=== PATIENT | female | born 1950 | race Caucasian/White ===

== ENCOUNTER 2016-06-25 03:12 | Observation (INO) | payer MEDICARE, BC ==
[2016-06-25] MEDS ORDERED: Nitroglycerin 2% Oint 1 GM UD Packet TOP ONE (03:20)
[2016-06-25] MEDS ORDERED: Aspirin 81 MG Tab.Chew PO ONE (03:20)
--- NOTE | 2016-06-25 03:23 | EDM.PDOC ---
ED HPI GENERAL MEDICAL PROBLEM - General Chief Complaint: Cardiovascular Problem Stated Complaint: CHEST PAINS Time Seen by Provider: 06/25/16 03:19 - History of Present Illness INITIAL COMMENTS - FREE TEXT/NARRATIVE: HISTORY AND PHYSICAL: History of present illness: Patient is a 66-year-old female history of prior myocardial infarction and atrial fibrillation presents with a concern of palpitations patient states she awoke with this approximately 2:30 AM she does not qualify this as a pain similar to her prior MS she denies associated shortness of breath nausea vomiting or other concerns Review of systems As per history of present illness and below otherwise all systems reviewed and negative. Past medical history: As per history of present illness and as reviewed below otherwise noncontributory. Surgical history: As per history of present illness and as reviewed below otherwise noncontributory. Social history: No reported history of drug or alcohol abuse. Family history: As per history of present illness and as reviewed below otherwise noncontributory. Physical exam: HEENT: Atraumatic, normocephalic, pupils reactive, negative for conjunctival pallor or scleral icterus, mucous membranes moist, throat clear, neck supple, nontender, trachea midline. Lungs: Clear to auscultation, breath sounds equal bilaterally, chest nontender. Heart: S1S2, irregularly irregular rate approximately 1:30, negative for clicks , rubs, or JVD. Abdomen: Soft, nondistended, nontender. Negative for masses or hepatosplenomegaly. Negative for costovertebral tenderness. Pelvis: Stable nontender. Genitourinary: Deferred. Rectal: Deferred. Extremities: Atraumatic, negative for cords or calf pain. Neurovascular unremarkable. Neuro: Awake, alert, oriented. Cranial nerves II through XII unremarkable. Cerebellum unremarkable. Motor and sensory unremarkable throughout. Exam nonfocal. Diagnostics: CBC CMP PT/INR troponin chest x-ray EKG Therapeutics: IV O2 monitor nitro paste 1 inch to chest wall Lopressor 5 mg IV every 5x3 aspirin 324 mg by mouth Impression: #1 atrial fibrillation with rapid ventricular response #2 history coronary artery disease #3 history of myocardial infarct Definitive disposition and diagnosis as appropriate pending reevaluation and review of above. Chest Pain Score (Numeric/FACES): 4 - Related Data Allergies Allergy/AdvReac Type Severity Reaction Status Date / Time RADHA Inhibitors AdvReac Cough Verified 06/25/16 04:23 Home Meds: Home Meds Aspirin [Cliff Chewable Aspirin] 81 mg PO DAILY 10/05/13 [History] Diltiazem HCl [Diltiazem 24Hr Cd] 360 mg PO DAILY 10/05/13 [History] Escitalopram [Lexapro] 20 mg PO DAILY 10/05/13 [History] Furosemide [Lasix] 60 mg PO DAILY 10/05/13 [History] Insulin Aspart [NovoLOG] 25 units SUBCUT ASDIRECTED 10/05/13 [History] Insulin Glarg,Human.Rec.Analog [Lantus] 50 units SUBCUT BEDTIME 10/05/13 [ History] Irbesartan [Avapro] 150 mg PO DAILY 10/05/13 [History] Isosorbide Mononitrate [Imdur] 120 mg PO DAILY 10/05/13 [History] Liraglutide [Victoza] 1.2 mg SUBCUT BEDTIME 10/05/13 [History] Metoprolol Succinate [Toprol XL 50mg] 50 mg PO BID 10/05/13 [History] Nitroglycerin 0.4 mg SL ASDIRECTED PRN 10/05/13 [History] Warfarin [Coumadin] 5 mg PO DAILY 10/05/13 [History] atorvaSTATin [Lipitor] 80 mg PO BEDTIME 10/05/13 [History] metFORMIN [Glucophage] 1,000 mg PO BID 10/05/13 [History] Social & Family History - Tobacco Use Smoking Status *Q: Former Smoker Years of Tobacco use: 35 Used Tobacco, but Quit: Yes Month Tobacco Last Used: December Second Hand Smoke Exposure: No - Recreational Drug Use Recreational Drug Use: No ED ROS GENERAL - Review of Systems Review Of Systems: ROS reveals no pertinent complaints other than HPI. ED EXAM, GENERAL - Physical Exam Exam: See Below (See dictation) Course - Vital Signs Last Recorded V/S: Last Vital Signs Temp 36.8 C 06/25/16 03:14 Pulse 104 H 06/25/16 07:06 Resp 16 06/25/16 07:06 BP 116/68 06/25/16 07:06 Pulse Ox 96 06/25/16 07:06 - Orders/Labs/Meds Orders: Active Orders 24 hr Category Date Time Status EKG Documentation Completion [RC] STAT Care 06/25/16 03:50 Active EKG Documentation Completion [RC] STAT Care 06/25/16 04:18 Active Chest 1V Frontal [CR] Stat Exams 06/25/16 03:24 Taken Labs: Laboratory Tests 06/25/16 06/25/16 06/25/16 Range/Units 03:26 03:26 03:26 WBC 8.48 (4.0-11.0) K/uL RBC 4.41 (4.30-5.90) M/uL Hgb 13.9 (12.0-16.0) g/dL Hct 41.1 (36.0-46.0) % MCV 93.2 (80.0-98.0) fL MCH 31.5 (27.0-32.0) pg MCHC 33.8 (31.0-37.0) g/dL RDW Std Deviation 44.5 (28.0-62.0) fl RDW Coeff of Imani 13 (11.0-15.0) % Plt Count 222 (150-400) K/uL MPV 10.10 (7.40-12.00) fL Neut % (Auto) 70.0 (48.0-80.0) % Lymph % (Auto) 22.5 (16.0-40.0) % Gage % (Auto) 5.4 (0.0-15.0) % Eos % (Auto) 2.0 (0.0-7.0) % Baso % (Auto) 0.1 (0.0-1.5) % Neut # (Auto) 5.9 H (1.4-5.7) K/uL Lymph # (Auto) 1.9 (0.6-2.4) K/uL Gage # (Auto) 0.5 (0.0-0.8) K/uL Eos # (Auto) 0.2 (0.0-0.7) K/uL Baso # (Auto) 0.0 (0.0-0.1) K/uL Nucleated RBC % 0.0 /100WBC Nucleated RBCs # 0 K/uL INR 1.89 H (0.86-1.11) Sodium 139 (136-146) mmol/L Potassium 3.4 L (3.5-5.1) mmol/L Chloride 103 (98-110) mmol/L Carbon Dioxide 24 (21-31) mmol/L BUN 19 (6.0-23.0) mg/dL Creatinine 0.7 (0.6-1.5) mg/dL Est Cr Clr Drug Dosing 68.27 mL/min Estimated GFR (MDRD) > 60.0 ml/min Glucose 48 L (60-110) mg/dL POC Glucose (60-110) mg/dL Calcium 10.1 (8.8-10.8) mg/dL Total Bilirubin 0.3 (0.1-1.5) mg/dL AST 26 (5-40) IU/L ALT 34 (8-54) IU/L Alkaline Phosphatase 85 (40-150) Troponin I (0.0-0.29) NG/ML B-Natriuretic Peptide (<100) PG/ML Total Protein 8.2 H (6.0-8.0) g/dL Albumin 4.6 (3.4-4.8) g/dL Globulin 3.6 H (2.0-3.5) g/dL Albumin/Globulin Ratio 1.3 (1.3-2.8) 06/25/16 06/25/16 06/25/16 Range/Units 03:26 03:26 04:08 WBC (4.0-11.0) K/uL RBC (4.30-5.90) M/uL Hgb (12.0-16.0) g/dL Hct (36.0-46.0) % MCV (80.0-98.0) fL MCH (27.0-32.0) pg MCHC (31.0-37.0) g/dL RDW Std Deviation (28.0-62.0) fl RDW Coeff of Imani (11.0-15.0) % Plt Count (150-400) K/uL MPV (7.40-12.00) fL Neut % (Auto) (48.0-80.0) % Lymph % (Auto) (16.0-40.0) % Gage % (Auto) (0.0-15.0) % Eos % (Auto) (0.0-7.0) % Baso % (Auto) (0.0-1.5) % Neut # (Auto) (1.4-5.7) K/uL Lymph # (Auto) (0.6-2.4) K/uL Gage # (Auto) (0.0-0.8) K/uL Eos # (Auto) (0.0-0.7) K/uL Baso # (Auto) (0.0-0.1) K/uL Nucleated RBC % /100WBC Nucleated RBCs # K/uL INR (0.86-1.11) Sodium (136-146) mmol/L Potassium (3.5-5.1) mmol/L Chloride (98-110) mmol/L Carbon Dioxide (21-31) mmol/L BUN (6.0-23.0) mg/dL Creatinine (0.6-1.5) mg/dL Est Cr Clr Drug Dosing mL/min Estimated GFR (MDRD) ml/min Glucose (60-110) mg/dL POC Glucose 38 L (60-110) mg/dL Calcium (8.8-10.8) mg/dL Total Bilirubin (0.1-1.5) mg/dL AST (5-40) IU/L ALT (8-54) IU/L Alkaline Phosphatase (40-150) Troponin I < 0.10 (0.0-0.29) NG/ML B-Natriuretic Peptide 126 H (<100) PG/ML Total Protein (6.0-8.0) g/dL Albumin (3.4-4.8) g/dL Globulin (2.0-3.5) g/dL Albumin/Globulin Ratio (1.3-2.8) 06/25/16 06/25/16 06/25/16 Range/Units 04:25 06:36 06:40 WBC (4.0-11.0) K/uL RBC (4.30-5.90) M/uL Hgb (12.0-16.0) g/dL Hct (36.0-46.0) % MCV (80.0-98.0) fL MCH (27.0-32.0) pg MCHC (31.0-37.0) g/dL RDW Std Deviation (28.0-62.0) fl RDW Coeff of Imani (11.0-15.0) % Plt Count (150-400) K/uL MPV (7.40-12.00) fL Neut % (Auto) (48.0-80.0) % Lymph % (Auto) (16.0-40.0) % Gage % (Auto) (0.0-15.0) % Eos % (Auto) (0.0-7.0) % Baso % (Auto) (0.0-1.5) % Neut # (Auto) (1.4-5.7) K/uL Lymph # (Auto) (0.6-2.4) K/uL Gage # (Auto) (0.0-0.8) K/uL Eos # (Auto) (0.0-0.7) K/uL Baso # (Auto) (0.0-0.1) K/uL Nucleated RBC % /100WBC Nucleated RBCs # K/uL INR (0.86-1.11) Sodium (136-146) mmol/L Potassium (3.5-5.1) mmol/L Chloride (98-110) mmol/L Carbon Dioxide (21-31) mmol/L BUN (6.0-23.0) mg/dL Creatinine (0.6-1.5) mg/dL Est Cr Clr Drug Dosing mL/min Estimated GFR (MDRD) ml/min Glucose (60-110) mg/dL POC Glucose 194 H 86 (60-110) mg/dL Calcium (8.8-10.8) mg/dL Total Bilirubin (0.1-1.5) mg/dL AST (5-40) IU/L ALT (8-54) IU/L Alkaline Phosphatase (40-150) Troponin I < 0.10 (0.0-0.29) NG/ML B-Natriuretic Peptide (<100) PG/ML Total Protein (6.0-8.0) g/dL Albumin (3.4-4.8) g/dL Globulin (2.0-3.5) g/dL Albumin/Globulin Ratio (1.3-2.8) Meds: Medications Discontinued Medications Generic Name Dose Route Start Last Admin Trade Name Freq PRN Reason Stop Dose Admin Aspirin 324 mg 06/25/16 03:20 06/25/16 03:28 Aspirin PO 06/25/16 03:21 324 mg ONETIME ONE Administration Dextrose/Water Confirm 06/25/16 04:15 06/25/16 05:05 Dextrose 50% In Water Administered 06/25/16 04:16 Not Given Dose 50 ml .ROUTE .STK-MED ONE Dextrose/Water 50 ml 06/25/16 04:21 06/25/16 04:16 Dextrose 50% In Water IVPUSH 06/25/16 04:22 50 ml ONETIME ONE Administration Metoprolol Succinate 50 mg 06/25/16 04:20 06/25/16 05:04 Toprol Xl PO 06/25/16 04:21 Not Given ONETIME ONE Metoprolol Tartrate 5 mg 06/25/16 03:30 06/25/16 04:09 Lopressor IVPUSH 06/25/16 03:41 5 mg Q5M BRIDGETT Administration Metoprolol Tartrate Confirm 06/25/16 04:16 06/25/16 05:04 Lopressor Administered 06/25/16 04:17 Not Given Dose 25 mg .ROUTE .STK-MED ONE Metoprolol Tartrate 25 mg 06/25/16 04:18 06/25/16 04:18 Lopressor PO 06/25/16 04:19 25 mg ONETIME ONE Administration Metoprolol Tartrate Confirm 06/25/16 05:04 06/25/16 05:34 Lopressor Administered 06/25/16 05:05 Not Given Dose 25 mg .ROUTE .STK-MED ONE Nitroglycerin 1 gm 06/25/16 03:20 06/25/16 03:26 Nitro-Bid 2% TOP 06/25/16 03:21 1 gm ONETIME ONE Administration Departure - Departure Time of Disposition: 07:10 Disposition: Refer to Observation Condition: good Clinical Impression: Chest pain, Palpitations Forms: ED Department Discharge - My Orders Last 24 Hours: My Active Orders 06/25/16 03:24 Chest 1V Frontal [CR] Stat 06/25/16 03:50 EKG Documentation Completion [RC] STAT 06/25/16 04:18 EKG Documentation Completion [RC] STAT - Assessment/Plan Last 24 Hours: My Active Orders 06/25/16 03:24 Chest 1V Frontal [CR] Stat 06/25/16 03:50 EKG Documentation Completion [RC] STAT 06/25/16 04:18 EKG Documentation Completion [RC] STAT
[2016-06-25] MEDS: Metoprolol Tartrate 5 MG/5 ML SDV IVPUSH SCH ×3 (03:30→04:09)
[2016-06-25 03:53] LABS: CHLORIDE,CL 103 mmol/L (98-110); SODIUM,NA 139 mmol/L (136-146)
[2016-06-25] MEDS ORDERED: 50% Dextrose in Water 50 ML Syringe ONE (04:15)
[2016-06-25] MEDS ORDERED: Metoprolol Tartrate 25 MG Tab ONE ×2 (04:16→05:04)
[2016-06-25] MEDS ORDERED: Metoprolol Tartrate 25 MG Tab PO ONE (04:18)
[2016-06-25] MEDS ORDERED: Metoprolol Succinate 50 MG Tab.ER PO ONE (04:20)
[2016-06-25] MEDS ORDERED: 50% Dextrose in Water 50 ML Syringe IVPUSH ONE (04:21)
[2016-06-25] MEDS ORDERED: Diltiazem 180 MG Cap.CD PO SCH (09:30)
[2016-06-25] MEDS ORDERED: Isosorbide Mononitrate 60 MG Tab.ER PO SCH (09:30)
[2016-06-25] MEDS ORDERED: Diltiazem 180 MG Cap.CD PO ONE (09:30)
[2016-06-25] MEDS ORDERED: Irbesartan 150 MG Tab PO SCH (09:30)
[2016-06-25] MEDS ORDERED: Escitalopram 10 MG Tab PO SCH (09:30)
--- NOTE | 2016-06-25 09:44 | PCM.HP ---
Addendum entered and electronically signed by Dank Das MD 06/25/16 17:14: Discharge Summary: Patient was monitored overnight. Her palpitations resolved shortly after arriving to floor. They did not recur and patient did well. HR improved after home medications were restarted. She was requesting to leave home. Her vitals were stable and labs were all normal. She was found to have a UTI which she states is a common recurrence for her. She was given 1 dose of Keflex during stay and sent home on 10 day course. Her Urine was sent for culture. She will be contacted by Dr. Das if her UC is not sensitive to Keflex. No changes were made to her home medications. She sees Dr. Lopes as her PCP and will be following up with him. She was also scheduled for follow-up with Dr. Justni, cardiology. She was informed of her subtherapeutic inr which she will address with her PCP. Discharge Diagnosis: 1. Palpitations, resolved 2. AF with RVR, now rate controlled - continue home medications 3. Subtherapeutic INR, 1.89 - no change made to Coumadin dose, patient to f/u with PCP 4. UTI - prescribed Keflex 500 mg BID for 10 days, Dr. Das to f/u on UC Original Note: H&P History of Present Illness - General Date of Service: 06/25/16 Admit Problem/Dx: Admission Diagnosis/Problem Admission Diagnosis/Problem Chest pain - History of Present Illness Initial Comments - Free Text/Narative: 66 yo fm with history of AF, CAD, NV in 2000, DM and Anxiety was admitted for palpitations and AF with RVR. Palpitations began last night while patient was sleeping. She states she was doing well with no recent illnesses prior to start of symptoms. She had some associated SOB and sweating but no chest pain. By the time she reached the medical floor her palpitations resolved. She has felt much better since then and would like to go home. It has been over 2 years she last experienced RVR. She states that she is in continuous AF. She sees a gel coater in [place] was told hy him that cardioversion would likely not be effective so it was not attempted. She last saw this past April. At that time she was on Digoxin which was stopped bc of low heart rate. She also had and echo done due to possible murmur. She is unsure what the EF was but she was told the echo was normal. Her next appointment with him is not for 1 year. She was a previous smoker but quit in 2000. She denies alcohol use. While in ED she had EKG, CBC, CMP, PT/INR and CXR done. She was given IVF and Lopressor 5 mg x 3 doses. Chest Pain Score (Numeric/FACES): 4 - Related Data Allergies/Adverse Reactions: Allergies Allergy/AdvReac Type Severity Reaction Status Date / Time RADHA Inhibitors AdvReac Cough Verified 06/25/16 04:23 Home Medications: Home Meds Aspirin [Cliff Chewable Aspirin] 81 mg PO DAILY 10/05/13 [History] Diltiazem HCl [Diltiazem 24Hr Cd] 360 mg PO DAILY 10/05/13 [History] Escitalopram [Lexapro] 20 mg PO DAILY 10/05/13 [History] Furosemide [Lasix] 60 mg PO DAILY 10/05/13 [History] Insulin Aspart [NovoLOG] 25 units SUBCUT BID 10/05/13 [History] Insulin Glarg,Human.Rec.Analog [Lantus] 50 units SUBCUT BEDTIME 10/05/13 [ History] Irbesartan [Avapro] 150 mg PO DAILY 10/05/13 [History] Isosorbide Mononitrate [Imdur] 120 mg PO DAILY 10/05/13 [History] Liraglutide [Victoza] 1.2 mg SUBCUT BEDTIME 10/05/13 [History] Nitroglycerin 0.4 mg SL ASDIRECTED PRN 10/05/13 [History] Warfarin [Coumadin] 5 mg PO DAILY 10/05/13 [History] atorvaSTATin [Lipitor] 80 mg PO BEDTIME 10/05/13 [History] metFORMIN [Glucophage] 1,000 mg PO BID 10/05/13 [History] Fesoterodine Fumarate [Toviaz] 8 mg PO BEDTIME 06/25/16 [History] Metoprolol Tartrate [Lopressor] 50 mg PO BID 06/25/16 [History] Past Medical History HEENT History: Reports: Cataract Cardiovascular History: Reports: Afib, CAD, Heart Murmur, High Cholesterol, Hypertension, NV, SOB on Exertion Respiratory History: Reports: Sleep Apnea Gastrointestinal History: Reports: None Genitourinary History: Reports: Pyelonephritis, UTI, Recurrent 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: Musculoskeletal History: Reports: Fracture Neurological History: Reports: None Psychiatric History: Reports: None Endocrine/Metabolic History: Reports: Diabetes, Type II, Obesity/BMI 30+ Hematologic History: Reports: Blood Transfusion(s) Immunologic History: Reports: None Oncologic (Cancer) History: Reports: None Dermatologic History: Reports: None - Infectious Disease History Infectious Disease History: Reports: Influenza, Measles, Mumps - Past Surgical History HEENT Surgical History: Reports: Cataract Surgery, Tonsillectomy Cardiovascular Surgical History: Reports: Coronary Artery Bypass, Percutaneous Transluminal Angioplasty Respiratory Surgical History: Reports: None Female Surgical History: Reports: None Endocrine Surgical History: Reports: None Social & Family History - Family History Family Medical History: Noncontributory - Tobacco Use Smoking Status *Q: Former Smoker Years of Tobacco use: 35 Used Tobacco, but Quit: Yes Month Tobacco Last Used: 16 years ago Second Hand Smoke Exposure: No - Caffeine Use Caffeine Use: Reports: Coffee - Recreational Drug Use Recreational Drug Use: No H&P Review of Systems - Review of Systems: Review Of Systems: See Below General: Reports: No Symptoms. Denies: Fever, Chills, Malaise, Weakness HEENT: Reports: No Symptoms Pulmonary: Reports: No Symptoms. Denies: Shortness of Breath, Pleuritic Chest Pain, Cough Cardiovascular: Reports: No Symptoms. Denies: Chest Pain, Palpitations, Dyspnea on Exertion, Edema, Lightheadedness, Syncope Gastrointestinal: Reports: No Symptoms Genitourinary: Reports: No Symptoms Musculoskeletal: Reports: No Symptoms Skin: Reports: No Symptoms Psychiatric: Reports: No Symptoms Neurological: Reports: No Symptoms. Denies: Confusion, Dizziness, Headache, Numbness, Paresthesia, Seizure, Syncope, Tremors, Difficulty Walking, Weakness Hematologic/Lymphatic: Reports: No Symptoms Immunologic: Reports: No Symptoms Exam - Exam Exam: See Below - Vital Signs Vital Signs: Last Vital Signs Temp 36.4 C 06/25/16 07:51 Pulse 104 H 06/25/16 07:06 Resp 18 06/25/16 07:51 BP 144/72 H 06/25/16 07:51 Pulse Ox 99 06/25/16 07:51 Weight: 99.8 kg - Exam General: Alert, Oriented, Cooperative HEENT: Conjunctiva Clear, EACs Clear, EOMI Neck: Supple, Trachea Midline, +2 Carotid Pulse wo Bruit. No: JVD Lungs: Clear to Auscultation, Normal Respiratory Effort Cardiovascular: Irregular Rhythm Abdomen: Normal Bowel Sounds Back Exam: Normal Inspection Extremities: Normal Inspection Peripheral Pulses: 2+: Dorsalis Pedis (L), Dorsalis Pedis (R) Skin: Warm, Intact Neurological: Cranial Nerves Intact, Reflexes Equal Bilateral Neuro Extensive - Mental Status: Alert, Oriented x3, Normal Cognition, Memory Intact - Patient Data Lab Results last 24 hrs: Laboratory Results - last 24 hr 06/25/16 Range/Units 08:04 POC Glucose 82 (60-110) mg/dL Result Diagrams: 06/25/16 03:26 06/25/16 03:26 *Q Meaningful Use (ADM) - VTE *Q VTE Criteria *Q: - Stroke *Q Stroke Criteria *Q: - AMI *Q AMI Criteria *Q: Problem List Initiated/Reviewed/Updated: Yes Orders Last 24hrs: Active Orders 24 hr Category Date Time Status Telemetry Monitoring [Cardiac Monitoring] [RC] Q8H Care 06/25/16 07:40 Active ADA Diabetic [[place] [employer] Diet] [DIET Diet 06/25/16 Breakfast Active ] Diltiazem HCl [Diltiazem 24Hr Cd] Med 06/25/16 09:30 Ordered 360 mg PO DAILY Escitalopram Med 06/25/16 09:30 Ordered 20 mg PO DAILY Irbesartan [Avapro] Med 06/25/16 09:30 Ordered 150 mg PO DAILY Isosorbide Mononitrate [Imdur] Med 06/25/16 09:30 Ordered 120 mg PO DAILY Medication Orders Irbesartan (Avapro) 150 mg PO DAILY [facility], [facility]1983 Non-Formulary Medication (Escitalopram) 20 mg PO DAILY [facility], [facility]1983 Non-Formulary Medication (Diltiazem Hcl [Diltiazem 24hr Cd]) 360 mg PO DAILY [facility]1983 Non-Formulary Medication (Isosorbide Mononitrate [Imdur]) 120 mg PO DAILY [facility] Assessment/Plan Comment:: 66 yo fm with history of DM, AF, CAD and NV in 2000 admitted for palpitations secondary to AF with RVR assessment: 1. AF with RVR, CAD and NV in 2000 -resume home Cardizem, Metoprolol, Irbesartan, Lasix, Imdur, Lipitor -Telemetry -troponin q6h x 3 2. Subtherapeutic INR -resume Coumadin as per pharmacy 3. Hypokalemia -Potassium 40 meq 4. DM 2 -resume home Metformin, Novolog and Lantus -diabetic diet -glucose 5. DVT Prophylaxis -resume Coumadin as per pharmacy dose
[2016-06-25] MEDS ORDERED: Potassium Chloride 20 MEQ Tab.ER PO ONE (10:09)
[2016-06-25] MEDS ORDERED: Furosemide 40 MG Tab PO SCH (10:15)
--- NOTE | 2016-06-25 10:40 | CR ---
EXAM DATE: 06/25/16 PATIENT'S AGE: 66 Patient: ALEXX COLLIER Facility: [place], [place] Site . Site : [id number] Study: XRay Chest [id number]/19/2017 4:10:06 AM Ordering Physician: Jonathan Garcia Final Report: INDICATION: Chest pain TECHNIQUE: Chest radiograph 1 view COMPARISON: 04/06/2013 FINDINGS: The study is moderately limited by body habitus. Cardiovascular and mediastinum: Moderate to severe cardiomegaly noted without interval change. The mediastinum is normal in appearance. The patient is status post median sternotomy. Lungs and pleural spaces: Both lungs are unremarkable in appearance. No sign of pleural effusion seen. No pneumothorax is identified. Bones and soft tissues: No significant findings. IMPRESSION: Moderate to severe cardiomegaly noted without interval change Dictated by Meng Rosas MD @ 06/25/2016 4:16:10 AM Dictated by: Meng Rosas MD @ 06/25/2016 04:16:14 (Electronic Signature) Report Signed by Proxy. [facility] CENTERMarija
[2016-06-25] MEDS ORDERED: Aspirin 81 MG Tab.Chew PO SCH (10:45)
[2016-06-25] MEDS ORDERED: Metoprolol Tartrate 50 MG Tab PO SCH (10:45)
[2016-06-25] MEDS ORDERED: Warfarin 2.5 MG Tab PO SCH (14:00)
[2016-06-25 16:15] VITALS: BP 110/64
[2016-06-25] MEDS ORDERED: Cephalexin 500 MG Cap PO ONE (16:53)
[2016-06-25] MEDS ORDERED: metFORMIN 500 MG Tab PO SCH (17:00)
[2016-06-26] MEDS ORDERED: Aspirin 81 MG Tab.Chew PO SCH (09:00)
== END 2016-06-25 17:27 | disposition home or self-care (01) ==
LOC: MW.ED 03:12 → MW.ICU 07:11
PROVIDERS: ADMIT Internal Medicine; ATTEND Internal Medicine
DX: R00.2 Palpitations (principal); N39.0 Urinary tract infection, site not specified; I48.91 Unspecified atrial fibrillation; I25.10 Atherosclerotic heart disease of native coronary artery without angina pectoris; I25.2 Old myocardial infarction; E87.6 Hypokalemia; E11.9 Type 2 diabetes mellitus without complications; I10 Essential (primary) hypertension; E78.00 Pure hypercholesterolemia, unspecified; G47.30 Sleep apnea, unspecified; E66.9 Obesity, unspecified; Z79.4 Long term (current) use of insulin; Z79.01 Long term (current) use of anticoagulants; Z79.82 Long term (current) use of aspirin; Z79.84 Long term (current) use of oral hypoglycemic drugs; Z79.899 Other long term (current) drug therapy; Z95.0 Presence of cardiac pacemaker; Z98.49 Cataract extraction status, unspecified eye; Z90.89 Acquired absence of other organs; Z98.890 Other specified postprocedural states; Z87.891 Personal history of nicotine dependence
CPT/HCPCS: 36415; 71010; 80053; 81001; 82962; 83735; 83880; 84484; 85025; 85610; 87086; 93005; 96374; 96375; 96376; 99285; A9270; G0378; J7060; 87088; 87186; 99284

== ENCOUNTER → 2016-07-01 | Outpatient (CLI) | payer MEDICARE, BC | LOC: MW.CHIM 08:00 | PROVIDERS: ATTEND Internal Medicine | DX: I48.91 Unspecified atrial fibrillation (principal); I25.10 Atherosclerotic heart disease of native coronary artery without angina pectoris; E78.5 Hyperlipidemia, unspecified; I10 Essential (primary) hypertension | CPT/HCPCS: 99204 ==

== ENCOUNTER 2020-02-18 11:50 | Emergency (ER) | payer MEDICARE, BC ==
--- NOTE | 2020-02-18 12:03 | EDM.PDOC ---
ED HPI GENERAL MEDICAL PROBLEM - General Chief Complaint: General Stated Complaint: LABS NOT NORMAL Time Seen by Provider: 02/18/20 11:52 Source of Information: Reports: Patient History Limitations: Reports: No Limitations - History of Present Illness INITIAL COMMENTS - FREE TEXT/NARRATIVE: HISTORY AND PHYSICAL: History of present illness: Patient is a 69-year-old female who presents emergency room today with concern of "lab work abnormalities". Patient states that at the end of January, around the , she was having issues with epigastric/chest pain and was seen at [facility] in [place]. She states that initially the doctors at [place] were concerned about her heart as she has a history of cardiac bypass surgery / CHF / valve disease / afib. Patient states that she had various multiple examinations of her heart and was told that nothing had changed with her heart. Patient states that she had a stress test, and echo, and MRI of her heart and was told that her arteries are clear. Patient states that since her evaluation at [place], she has had shortness of breath/upper abd pain/lower chest pain. Patient states that they told her her gallbladder was abnormal so she had her gallbladder removed while she was in the hospital. Patient states that she does not fully remember all the events but was told that her gallbladder was infected and she required IV antibiotics and hospital admission. Patient does express upper abdominal pain and SOB but states these are unchanged from discharge from [facility] at the end of January. She states she has chronic UTI but her urine has been darker so she thinks she has another UTI. She state she has had some looser stools since her hospital stay. Patient denies fever, chills, chest pain or cough. Denies headache, neck stiff ness, change in vision, syncope, or near syncope. Denies nausea, vomiting, diarrhea, constipation, or dysuria. Has not noted any blood in urine or stool. Patient has been eating and drinking appropriately. Review of systems: As per history of present illness and below otherwise all systems reviewed and negative. Past medical history: As per history of present illness and as reviewed below otherwise noncontributory. Surgical history: As per history of present illness and as reviewed below otherwise noncontributory. Social history: See social history for further information Family history: As per history of present illness and as reviewed below otherwise noncontributory. Physical exam: General: Patient is alert, oriented, and in no acute distress. Patient sitting comfortably on exam table. Vitals stable and reviewed by me. HEENT: Atraumatic, normocephalic, pupils equal and reactive bilaterally, negative for conjunctival pallor or scleral icterus, mucous membranes moist, TMs normal bilaterally, throat clear, neck supple, nontender, trachea midline. No drooling or trismus noted. No meningeal signs. No hot potato voice noted. Lungs: Patient does make a few gasping sounds and draws in deeper breaths with use of intercostal muscles for breathing/uncomfortable breathing. Otherwise, Clear to auscultation, breath sounds equal bilaterally, chest nontender. Heart: S1S2, regular rate and rhythm without overt murmur Abdomen: Soft, nondistended, nontender. Negative for masses or hepatosplenomegaly. Negative for costovertebral tenderness. Pelvis: Stable nontender. Genitourinary: Deferred. Rectal: Deferred. Skin: Intact, warm, dry. No lesions or rashes noted. Extremities: Atraumatic, negative for cords or calf pain. Neurovascular unremarkable. Neuro: Awake, alert, oriented. Cranial nerves II through XII unremarkable. Cerebellum unremarkable. Motor and sensory unremarkable throughout. Exam nonfocal. Notes: Dr. Damian directly involved in patient care. Upon reevaluation of patient, she remains comfortable in the ED and is much more comfortable breathing on 2L NC. All findings of diagnostics discussed with patient today including incidental findings. Patient states that she would not like to be transferred to [facility] as she states that she "had a bad experience "and would like to foresee other possible facilities to address her postop fluid collection/concern for abscess or biloma. I called and spoke to the general surgeon at [facility] in [place], Dr. Grande, and thoroughly discussed patient's case. He is willing to accept patient for transfer. EMS arranged. Patient remains vitally stable and comfortable thoroughly stay in ED. Voices understanding and is agreeable to plan of care. Denies any further questions or concerns at this time. Diagnostics: CBC, CMP, UA, EKG, chest x-ray, lactate, blood cultures x 2, troponin, lipase, BNP, CXR, D-dimer, and CT, abdominal pelvic CT, right upper quadrant ultrasound, stool culture/shiga, cdiff tox, ova and parasite, ABG Therapeutics: NS, Zosyn, Vancomycin Impression: Intraabdominal fluid collection, post operative Dyspnea Urinary tract infection Plan: Transfer to to Dr. Grande via EMS Definitive disposition and diagnosis as appropriate pending reevaluation and review of above. - Related Data Allergies Allergy/AdvReac Type Severity Reaction Status Date / Time atenolol [From Tenormin] Allergy Cough Verified 02/18/20 12:14 RADHA Inhibitors AdvReac Cough Verified 06/25/16 04:23 Home Meds: Home Meds Aspirin [Cliff Chewable Aspirin] 81 mg PO DAILY 10/05/13 [History] Escitalopram [Lexapro] 20 mg PO DAILY 10/05/13 [History] Furosemide [Lasix] 60 mg PO DAILY 10/05/13 [History] Insulin Aspart [NovoLOG] 25 units SUBCUT BID 10/05/13 [History] Insulin Glarg,Human.Rec.Analog [Lantus] 50 units SUBCUT BEDTIME 10/05/13 [History] Irbesartan [Avapro] 150 mg PO DAILY 10/05/13 [History] Isosorbide Mononitrate [Imdur] 120 mg PO DAILY 10/05/13 [History] Liraglutide [Victoza] 1.2 mg SUBCUT BEDTIME 10/05/13 [History] Nitroglycerin 0.4 mg SL ASDIRECTED PRN 10/05/13 [History] Warfarin [Coumadin] 5 mg PO DAILY 10/05/13 [History] atorvaSTATin [Lipitor] 80 mg PO BEDTIME 10/05/13 [History] dilTIAZem HCl [Diltiazem 24Hr ER (Cd)] 360 mg PO DAILY 10/05/13 [History] metFORMIN [Glucophage] 1,000 mg PO BID 10/05/13 [History] Cephalexin [Keflex] 500 mg PO BID #20 cap 06/25/16 [Rx] Fesoterodine Fumarate [Toviaz] 8 mg PO BEDTIME 06/25/16 [History] Metoprolol Tartrate [Lopressor] 50 mg PO BID 06/25/16 [History] Past Medical History HEENT History: Reports: Cataract Cardiovascular History: Reports: Afib, CAD, Heart Murmur, High Cholesterol, Hypertension, [place], SOB on Exertion Respiratory History: Reports: Sleep Apnea, Other (See Below) Other Respiratory History: dyspnea Gastrointestinal History: Reports: None Genitourinary History: Reports: Pyelonephritis, UTI, Recurrent [employer] History: Reports: Musculoskeletal History: Reports: Fracture Neurological History: Reports: None, Parkinson's Psychiatric History: Reports: None Endocrine/Metabolic History: Reports: Diabetes, Type II, Obesity/BMI 30+ Hematologic History: Reports: Blood Transfusion(s) Immunologic History: Reports: None Oncologic (Cancer) History: Reports: None Dermatologic History: Reports: None - Infectious Disease History Infectious Disease History: Reports: Influenza, Measles, Mumps Social & Family History - Family History Family Medical History: No Pertinent Family History - Caffeine Use Caffeine Use: Reports: Coffee ED ROS GENERAL - Review of Systems Review Of Systems: Comprehensive ROS is negative, except as noted in HPI. ED EXAM, GENERAL - Physical Exam Exam: See Below (see dictation) Course - Vital Signs Last Recorded V/S: Last Vital Signs Temp 96.4 F L 02/18/20 12:14 Pulse 86 02/18/20 17:06 Resp 16 02/18/20 12:14 BP 100/48 L 02/18/20 17:06 Pulse Ox 97 02/18/20 17:06 - Orders/Labs/Meds Orders: Active Orders 24 hr Category Date Time Status C DIFFICILE AG/TOXIN W/REFLEX [RM] Stat Lab 02/18/20 15:05 Ordered CULTURE BLOOD [BC] Stat Lab 02/18/20 13:13 Received CULTURE BLOOD [BC] Stat Lab 02/18/20 13:17 Received CULTURE URINE [RM] Stat Lab 02/18/20 12:07 Received OVA & PARASITES BY IMMUNOASSAY [MREF] Stat Lab 02/18/20 15:06 Ordered STOOL CULTURE/SHIGA TOXIN [MREF] Stat Lab 02/18/20 15:06 Ordered Blood Culture x2 Reflex Set [OM.PC] Stat Oth 02/18/20 12:41 Ordered Saline Lock Insert [OM.PC] Stat Oth 02/18/20 12:40 Ordered Labs: Laboratory Tests 02/18/20 02/18/20 02/18/20 Range/Units 12:07 12:56 12:56 WBC 28.94 H (4.0-11.0) K/uL RBC 3.51 L (4.30-5.90) M/uL Hgb 10.6 L (12.0-16.0) g/dL Hct 31.7 L (36.0-46.0) % MCV 90.3 (80.0-98.0) fL MCH 30.2 (27.0-32.0) pg MCHC 33.4 (31.0-37.0) g/dL RDW Std Deviation 45.4 (28.0-62.0) fl RDW Coeff of Imani 14 (11.0-15.0) % Plt Count 432 H (150-400) K/uL MPV 9.30 (7.40-12.00) fL Neut % (Auto) 93.8 H (48.0-80.0) % Lymph % (Auto) 3.1 L (16.0-40.0) % [place] % (Auto) 2.8 (0.0-15.0) % Eos % (Auto) 0.3 (0.0-7.0) % Baso % (Auto) 0.0 (0.0-1.5) % Neut # (Auto) 27.1 H (1.4-5.7) K/uL Lymph # (Auto) 0.9 (0.6-2.4) K/uL [place] # (Auto) 0.8 (0.0-0.8) K/uL Eos # (Auto) 0.1 (0.0-0.7) K/uL Baso # (Auto) 0.0 (0.0-0.1) K/uL D-Dimer, Quantitative 4.42 H (0.0-0.50) mg/L FEU ABG pH (7.35-7.45) ABG pCO2 (35-45) mmHG ABG pO2 (75-100) mmHG ABG HCO3 (22-26) mEq/L ABG Total CO2 ABG Base Excess (-2.0-2.0) VBG pH (7.31-7.41) VBG pCO2 (35-45) mmHG VBG pO2 (30-40) mmHG VBG HCO3 (22-30) mEq/L VBG Total CO2 (41-51) mmol/L VBG Base Excess (-3.0-3.0) Lactate (0.20-2.00) mmol/L Sodium (136-145) mmol/L Potassium (3.5-5.1) mmol/L Chloride (98-107) mmol/L Carbon Dioxide (21.0-32.0) mmol/L BUN (7.0-18.0) mg/dL Creatinine (0.6-1.0) mg/dL Est Cr Clr Drug Dosing mL/min Estimated GFR (MDRD) ml/min Glucose (74-106) mg/dL Calcium (8.5-10.1) mg/dL Total Bilirubin (0.2-1.0) mg/dL AST (15-37) IU/L ALT (14-63) IU/L Alkaline Phosphatase (46-116) U/L Troponin I (0.000-0.056) ng/mL B-Natriuretic Peptide (<100) PG/ML Total Protein (6.4-8.2) g/dL Albumin (3.4-5.0) g/dL Globulin (2.6-4.0) g/dL Albumin/Globulin Ratio (0.9-1.6) Lipase (73-393) U/L Urine Color YELLOW Urine Appearance CLOUDY Urine pH 6.0 (5.0-8.0) Ur Specific [place] 1.010 (1.001-1.035) Urine Protein NEGATIVE (NEGATIVE) mg/dL Urine Glucose (UA) NEGATIVE (NEGATIVE) mg/dL Urine Ketones NEGATIVE (NEGATIVE) mg/dL Urine Occult Blood SMALL H (NEGATIVE) Urine Nitrite NEGATIVE (NEGATIVE) Urine Bilirubin NEGATIVE (NEGATIVE) Urine Urobilinogen 0.2 (<2.0) EU/dL Ur Leukocyte Esterase LARGE H (NEGATIVE) Urine RBC 2-3 (0-2/HPF) Urine WBC 60-80 (0-5/HPF) Ur Epithelial Cells FEW (NONE-FEW) Amorphous Sediment FEW (NEGATIVE) Urine Bacteria 2+ H (NEGATIVE) Urine Mucus FEW (NONE-MOD) 02/18/20 02/18/20 02/18/20 Range/Units 12:56 12:56 12:56 WBC (4.0-11.0) K/uL RBC (4.30-5.90) M/uL Hgb (12.0-16.0) g/dL Hct (36.0-46.0) % MCV (80.0-98.0) fL MCH (27.0-32.0) pg MCHC (31.0-37.0) g/dL RDW Std Deviation (28.0-62.0) fl RDW Coeff of Imani (11.0-15.0) % Plt Count (150-400) K/uL MPV (7.40-12.00) fL Neut % (Auto) (48.0-80.0) % Lymph % (Auto) (16.0-40.0) % [place] % (Auto) (0.0-15.0) % Eos % (Auto) (0.0-7.0) % Baso % (Auto) (0.0-1.5) % Neut # (Auto) (1.4-5.7) K/uL Lymph # (Auto) (0.6-2.4) K/uL [place] # (Auto) (0.0-0.8) K/uL Eos # (Auto) (0.0-0.7) K/uL Baso # (Auto) (0.0-0.1) K/uL D-Dimer, Quantitative (0.0-0.50) mg/L FEU ABG pH (7.35-7.45) ABG pCO2 (35-45) mmHG ABG pO2 (75-100) mmHG ABG HCO3 (22-26) mEq/L ABG Total CO2 ABG Base Excess (-2.0-2.0) VBG pH 7.48 H (7.31-7.41) VBG pCO2 40 (35-45) mmHG VBG pO2 31 (30-40) mmHG VBG HCO3 29 (22-30) mEq/L VBG Total CO2 27 L (41-51) mmol/L VBG Base Excess 5.5 H (-3.0-3.0) Lactate (0.20-2.00) mmol/L Sodium 133 L (136-145) mmol/L Potassium 3.6 (3.5-5.1) mmol/L Chloride 94 L (98-107) mmol/L Carbon Dioxide 27.3 (21.0-32.0) mmol/L BUN 10 (7.0-18.0) mg/dL Creatinine 0.8 (0.6-1.0) mg/dL Est Cr Clr Drug Dosing 52.49 mL/min Estimated GFR (MDRD) > 60.0 ml/min Glucose 108 H (74-106) mg/dL Calcium 9.0 (8.5-10.1) mg/dL Total Bilirubin 1.4 H (0.2-1.0) mg/dL AST 232 H (15-37) IU/L ALT 277 H (14-63) IU/L Alkaline Phosphatase 893 H (46-116) U/L Troponin I < 0.050 (0.000-0.056) ng/mL B-Natriuretic Peptide 365 H (<100) PG/ML Total Protein 7.5 (6.4-8.2) g/dL Albumin 2.1 L (3.4-5.0) g/dL Globulin 5.4 H (2.6-4.0) g/dL Albumin/Globulin Ratio 0.4 L (0.9-1.6) Lipase (73-393) U/L Urine Color Urine Appearance Urine pH (5.0-8.0) Ur Specific [place] (1.001-1.035) Urine Protein (NEGATIVE) mg/dL Urine Glucose (UA) (NEGATIVE) mg/dL Urine Ketones (NEGATIVE) mg/dL Urine Occult Blood (NEGATIVE) Urine Nitrite (NEGATIVE) Urine Bilirubin (NEGATIVE) Urine Urobilinogen (<2.0) EU/dL Ur Leukocyte Esterase (NEGATIVE) Urine RBC (0-2/HPF) Urine WBC (0-5/HPF) Ur Epithelial Cells (NONE-FEW) Amorphous Sediment (NEGATIVE) Urine Bacteria (NEGATIVE) Urine Mucus (NONE-MOD) 02/18/20 02/18/20 02/18/20 Range/Units 12:56 13:17 14:39 WBC (4.0-11.0) K/uL RBC (4.30-5.90) M/uL Hgb (12.0-16.0) g/dL Hct (36.0-46.0) % MCV (80.0-98.0) fL MCH (27.0-32.0) pg MCHC (31.0-37.0) g/dL RDW Std Deviation (28.0-62.0) fl RDW Coeff of Imani (11.0-15.0) % Plt Count (150-400) K/uL MPV (7.40-12.00) fL Neut % (Auto) (48.0-80.0) % Lymph % (Auto) (16.0-40.0) % [place] % (Auto) (0.0-15.0) % Eos % (Auto) (0.0-7.0) % Baso % (Auto) (0.0-1.5) % Neut # (Auto) (1.4-5.7) K/uL Lymph # (Auto) (0.6-2.4) K/uL [place] # (Auto) (0.0-0.8) K/uL Eos # (Auto) (0.0-0.7) K/uL Baso # (Auto) (0.0-0.1) K/uL D-Dimer, Quantitative (0.0-0.50) mg/L FEU ABG pH 7.523 H (7.35-7.45) ABG pCO2 33 L (35-45) mmHG ABG pO2 94 (75-100) mmHG ABG HCO3 27 H (22-26) mEq/L ABG Total CO2 24.0 ABG Base Excess 4.6 H (-2.0-2.0) VBG pH (7.31-7.41) VBG pCO2 (35-45) mmHG VBG pO2 (30-40) mmHG VBG HCO3 (22-30) mEq/L VBG Total CO2 (41-51) mmol/L VBG Base Excess (-3.0-3.0) Lactate 1.1 (0.20-2.00) mmol/L Sodium (136-145) mmol/L Potassium (3.5-5.1) mmol/L Chloride (98-107) mmol/L Carbon Dioxide (21.0-32.0) mmol/L BUN (7.0-18.0) mg/dL Creatinine (0.6-1.0) mg/dL Est Cr Clr Drug Dosing mL/min Estimated GFR (MDRD) ml/min Glucose (74-106) mg/dL Calcium (8.5-10.1) mg/dL Total Bilirubin (0.2-1.0) mg/dL AST (15-37) IU/L ALT (14-63) IU/L Alkaline Phosphatase (46-116) U/L Troponin I (0.000-0.056) ng/mL B-Natriuretic Peptide (<100) PG/ML Total Protein (6.4-8.2) g/dL Albumin (3.4-5.0) g/dL Globulin (2.6-4.0) g/dL Albumin/Globulin Ratio (0.9-1.6) Lipase 385 (73-393) U/L Urine Color Urine Appearance Urine pH (5.0-8.0) Ur Specific [place] (1.001-1.035) Urine Protein (NEGATIVE) mg/dL Urine Glucose (UA) (NEGATIVE) mg/dL Urine Ketones (NEGATIVE) mg/dL Urine Occult Blood (NEGATIVE) Urine Nitrite (NEGATIVE) Urine Bilirubin (NEGATIVE) Urine Urobilinogen (<2.0) EU/dL Ur Leukocyte Esterase (NEGATIVE) Urine RBC (0-2/HPF) Urine WBC (0-5/HPF) Ur Epithelial Cells (NONE-FEW) Amorphous Sediment (NEGATIVE) Urine Bacteria (NEGATIVE) Urine Mucus (NONE-MOD) Meds: Medications Discontinued Medications Generic Name Dose Route Start Last Admin Trade Name Freq PRN Reason Stop Dose Admin Acetaminophen 1,000 mg 02/18/20 13:35 02/18/20 13:42 Tylenol Extra Strength PO 02/18/20 13:36 1,000 mg ONETIME ONE Administration Sodium Chloride 1,000 mls @ 999 mls/hr 02/18/20 14:35 02/18/20 15:49 Normal Saline IV 02/18/20 15:35 999 mls/hr STAT ONE Administration Vancomycin HCl 2 gm/ Sodium 500 mls @ 333 mls/hr 02/18/20 14:37 02/18/20 15:53 Chloride IV 02/18/20 16:07 Not Given NOW STA Piperacillin Sod/Tazobactam 50 mls @ 100 mls/hr 02/18/20 14:38 02/18/20 15:50 Sod 3.375 gm/ Sodium Chloride IV 02/18/20 15:07 100 mls/hr ONETIME ONE Administration Vancomycin HCl 2 gm/ Premix 400 mls @ 200 mls/hr 02/18/20 15:00 02/18/20 15:50 IV 02/18/20 16:59 200 mls/hr ONETIME ONE Administration Iopamidol 100 ml 02/18/20 15:10 Isovue Multipack-370 (76%) IVPUSH 02/18/20 15:11 ONETIME STA Lidocaine HCl Confirm 02/18/20 14:21 02/18/20 14:25 Xylocaine-Mpf 1% Administered 02/18/20 14:22 Not Given Dose 5 ml .ROUTE .STK-MED ONE Lidocaine HCl 5 ml 02/18/20 14:25 02/18/20 14:31 Xylocaine-Mpf 1% INJECT 02/18/20 14:26 5 ml ONETIME ONE Administration Sodium Chloride 2.5 ml 02/18/20 12:40 02/18/20 13:43 Saline Flush FLUSH 2.5 ml ASDIRECTED PRN Administration Keep Vein Open Sodium Chloride 10 ml 02/18/20 12:40 02/18/20 13:42 Saline Flush FLUSH 10 ml ASDIRECTED PRN Administration Keep Vein Open Departure - Departure Time of Disposition: 17:57 Disposition: DC/Tfer to [facility] 02 Clinical Impression: Intraabdominal fluid collection Post-operative complication Qualifiers: Surgical complication system/body Area: digestive system Surgical complication type: unspecified Procedure type: digestive system Qualified Code(s): K91.89 - Other postprocedural complications and disorders of digestive system Urinary tract infection Qualifiers: Urinary tract infection type: acute cystitis Hematuria presence: without hematuria Qualified Code(s): N30.00 - Acute cystitis without hematuria Dyspnea Qualifiers: Dyspnea type: unspecified Qualified Code(s): R06.00 - Dyspnea, unspecified - Discharge Information Referrals: Master Lopes MD [Primary Care Provider] - Forms: ED Department Discharge Sepsis Event Note (ED) - Focused Exam Vital Signs: Vital Signs Temp Pulse Resp BP Pulse Ox 02/18/20 17:06 86 100/48 L 97 02/18/20 16:36 86 110/45 L 100 02/18/20 14:00 73 99 02/18/20 13:20 83 99 02/18/20 12:48 77 123/45 L 97 02/18/20 12:14 96.4 F L 85 16 126/52 L 96 - My Orders Last 24 Hours: My Active Orders 02/18/20 12:07 CULTURE URINE [RM] Stat 02/18/20 12:40 Saline Lock Insert [OM.PC] Stat 02/18/20 12:41 Blood Culture x2 Reflex Set [OM.PC] Stat 02/18/20 13:13 CULTURE BLOOD [BC] Stat 02/18/20 13:17 CULTURE BLOOD [BC] Stat 02/18/20 15:05 C DIFFICILE AG/TOXIN W/REFLEX [RM] Stat 02/18/20 15:06 OVA & PARASITES BY IMMUNOASSAY [MREF] Stat STOOL CULTURE/SHIGA TOXIN [MREF] Stat - Assessment/Plan Last 24 Hours: My Active Orders 02/18/20 12:07 CULTURE URINE [RM] Stat 02/18/20 12:40 Saline Lock Insert [OM.PC] Stat 02/18/20 12:41 Blood Culture x2 Reflex Set [OM.PC] Stat 02/18/20 13:13 CULTURE BLOOD [BC] Stat 02/18/20 13:17 CULTURE BLOOD [BC] Stat 02/18/20 15:05 C DIFFICILE AG/TOXIN W/REFLEX [RM] Stat 02/18/20 15:06 OVA & PARASITES BY IMMUNOASSAY [MREF] Stat STOOL CULTURE/SHIGA TOXIN [MREF] Stat
[2020-02-18] MEDS ORDERED: Sodium Chloride 0.9% 2.5 ML Syringe FLUSH PRN (12:40)
[2020-02-18] MEDS ORDERED: Sodium Chloride 0.9% 10 ML Syringe FLUSH PRN (12:40)
--- NOTE | 2020-02-18 13:13 | PCM.SN.2 ---
- Free Text/Narrative Note: EKG Time 104pm RATE 97 A-FIB T WAVE INVERSION V2
--- NOTE | 2020-02-18 13:25 | CR ---
Indication: Shortness of breath Comparison: Single view chest June 25, 2016 Technique: Single AP view chest Findings: There is hyperinflation and chronic interstitial change. There is demonstration of a left basilar pleural effusion with adjacent compressive atelectasis versus infiltrates. The cardiac silhouette is enlarged with a tortuous thoracic aorta with median sternotomy wires. The bony thorax is grossly intact. Impression: Small left basilar pleural effusion with likely adjacent compressive atelectasis versus infiltrates. Dictated by Royal Winters MD @ Feb 18 2020 1:19PM Signed by Dr. Royal Winters @ Feb 18 2020 1:23PM
[2020-02-18] MEDS ORDERED: Acetaminophen 500 MG Tab PO ONE (13:35)
[2020-02-18 13:46] LABS: BLOOD UREA NITROGEN,BUN 10 mg/dL (7.0-18.0); CARBON DIOXIDE,CO2 27.3 mmol/L (21.0-32.0); CHLORIDE,CL 94 mmol/L (98-107); GLUCOSE RANDOM 108 mg/dL (74-106); POTASSIUM,K 3.6 mmol/L (3.5-5.1); SODIUM,NA 133 mmol/L (136-145)
[2020-02-18] MEDS ORDERED: Sodium Chloride 0.9% 1,000 ML IV ONE (14:35)
[2020-02-18] MEDS ORDERED: Vancomycin 2 GM in Sodium Chloride 0.9% 500 ML IV STA (14:37)
[2020-02-18] MEDS ORDERED: Piperacillin/Tazobactam 3.375 GM in Sodium Chloride 0.9% 50 ML IV ONE (14:38)
--- NOTE | 2020-02-18 14:51 | PCM.SN.2 ---
- Free Text/Narrative Note: Anesthesia time [id number] Requested bedside for difficult arterial stick for ABG. L radial artery visualized with US. Lido. 1% for localization. 1 attempt. ABG vacuum syringe used to successfully ascertain arterial sample. RN held pressure to hemostasis. Pt alert and conversing throughout, no complications noted.
[2020-02-18] MEDS ORDERED: Vancomycin/Water for INJ (PEG) 2 GM in Premix Bag 1 BAG IV ONE (15:00)
[2020-02-18] MEDS ORDERED: Iopamidol 755 MG/ML 500 ML Multipack Bottle IVPUSH STA (15:10)
--- NOTE | 2020-02-18 15:39 | CT ---
INDICATION: Elevated D-dimer. Elevated white blood cell count. Recent gallbladder surgery. TECHNIQUE: CT abdomen and pelvis acquired with 100 cc Isovue 370 IV contrast. COMPARISON: None. FINDINGS: Lower chest: Trace left-sided pleural effusion with adjacent atelectasis. Liver: Unremarkable. Normal in size and attenuation. No masses. Gallbladder and bile ducts: Gallbladder has been resected. There is a poorly defined fluid collection in the gallbladder fossa at its widest point measuring 6.4 x 3.8 cm as measured on series 501, image 43. The anterior portion of this fluid collection is relatively dense as visualized on image 49 suggesting blood products and/or pus. The fluid collection also extends to the left and superiorly under the left diaphragm. A segment of the fluid collection under the diaphragm measures 10 x 3 cm. Pancreas: Unremarkable. No mass or inflammation. Spleen: Unremarkable. Normal in size. No masses. Adrenal glands: Minimal nodularity in each adrenal gland is of doubtful significance. Kidneys: There is scarring with calcifications in the cortex of the left kidney. Kidneys are otherwise unremarkable. GI tract: Unremarkable. Normal in caliber. No sign of mass or inflammation. Vasculature: Aortic atherosclerosis without aneurysm. Lymph nodes: No lymphadenopathy. Omentum/Peritoneum/Abdominal Wall: No intra-abdominal free air. Pelvis: Nondependent air in the urinary bladder is likely the result of recent catheterization. Bones: Unremarkable for age. IMPRESSION: 1. A moderate-sized complex postoperative fluid collection originating in the gallbladder fossa extends superiorly under the left diaphragm. This fluid collection could represent an abscess and/or hematoma, seroma, and bile leak. 2. Trace left-sided pleural effusion with adjacent atelectasis. Please note that all CT scans at this facility use dose modulation, iterative reconstruction, and/or weight-based dosing when appropriate to reduce radiation dose to as low as reasonably achievable. Dictated by Claude Cotto MD @ Feb 18 2020 3:29PM Signed by Dr. Claude Cotto @ Feb 18 2020 3:38PM
--- NOTE | 2020-02-18 16:06 | CT ---
INDICATION: Elevated D-dimer. Leukocytosis. Gallbladder surgery 02/04/2020. Abnormal CT of the abdomen and pelvis with fluid collection in the upper abdomen COMPARISON: No prior chest CTs. I have reviewed portions of the contemporaneously abdomen CT which was reported under separate cover TECHNIQUE: : CT examination of the chest was performed with the uneventful intravenous administration of 100 cc of Isovue 370 while thin axial sections were obtained from above the apices of the lungs to the lung bases. Please note that all CT scans at this facility use dose modulation, iterative reconstruction, and/or weight-based dosing when appropriate to reduce radiation dose to as low as reasonably achievable. FINDINGS: : HEART and MEDIASTINUM: Enlarged heart. No mediastinal or hilar adenopathy or mass. Median. Sternotomy. No significant pericardial fluid PULMONARY ARTERIAL CIRCULATION: There is no visible intraluminal filling defect to suggest pulmonary embolus. LUNGS: Emphysema. Left basilar airspace process probably atelectasis. Small left effusion. There are few nodules. The largest is in the right midlung on axial image 43 measuring 5 millimeters. A follow-up CT is recommended in 6 months to re-evaluate the lungs. PLEURAL SPACES: Normal right pleural space. Small left effusion. VISUALIZED UPPER ABDOMEN: Abnormal fluid in the upper abdomen extending under the left hemidiaphragm. This could be hematoma, seroma, abscess or bile leak. Please review the report of the abdomen and pelvis CT OSSEOUS STRUCTURES: Age-appropriate appearance. No acute fracture or destructive process. TUBES and LINES: None. IMPRESSION: 1. There is no finding of pulmonary embolus. 2. Left lower lobe atelectasis. Small left effusion. Emphysema. Several small nodules the largest of which measures 5 millimeters. A follow-up CT in 6 months is advised. 3. Abnormal fluid associated with the gallbladder fossa in the upper abdomen extending below the left hemidiaphragm. This could be hematoma, seroma, abscess or bile leak. Please review the report of the contemporaneously abdomen and pelvis CT Please note that all CT scans at this facility use dose modulation, iterative reconstruction, and/or weight-based dosing when appropriate to reduce radiation dose to as low as reasonably achievable. Dictated by Kalen Romano MD @ Feb 18 2020 3:54PM Signed by Dr. Kalen Romano @ Feb 18 2020 4:04PM
--- NOTE | 2020-02-18 16:14 | US ---
INDICATION: Transaminitis, recent cholecystectomy TECHNIQUE: Ultrasound abdomen limited. Sonographic images of the right upper quadrant were obtained using carlin-scale and color Doppler images. COMPARISON: CT abdomen February 18, 2020 FINDINGS: Liver: Normal in size and echotexture. No masses. No intrahepatic biliary dilatation. Gallbladder: Status post cholecystectomy. Small amount of fluid in the gallbladder fossa. Common bile duct: 2.9 mm. Pancreas: Not clearly seen. Right kidney: 11.2 cm in length. No hydronephrosis. Vasculature: Proximal abdominal aorta and IVC are normal. IMPRESSION: Small amount of fluid in the gallbladder bed. Correlate with date of cholecystectomy. Normal common bile duct. Dictated by Ashley Lam MD @ Feb 18 2020 4:13PM Signed by Dr. Ashley Lam @ Feb 18 2020 4:13PM
[2020-02-18 17:04] VITALS: PULSE 86
[2020-02-18 17:44] VITALS: BP 100/48
== END 2020-02-18 18:00 ==
LOC: MW.ED 11:50 → EEVIPCON 11:50 → MW.ED 18:00
DX: K91.89 Other postprocedural complications and disorders of digestive system (principal); N30.00 Acute cystitis without hematuria; R18.8 Other ascites; R06.00 Dyspnea, unspecified; E11.9 Type 2 diabetes mellitus without complications; E66.9 Obesity, unspecified; I10 Essential (primary) hypertension; I25.2 Old myocardial infarction; I48.91 Unspecified atrial fibrillation; G20 Parkinson's disease; Z88.8 Allergy status to other drugs, medicaments and biological substances; Z79.82 Long term (current) use of aspirin; Z79.4 Long term (current) use of insulin; Z79.899 Other long term (current) drug therapy; Z68.38 Body mass index [BMI] 38.0-38.9, adult
CPT/HCPCS: 36415; 36600; 71045; 71275; 74177; 76705; 80053; 81001; 82803; 83605; 83690; 83880; 84484; 85025; 85379; 87040; 87086; 87088; 87186; 93005; 96365; 96366; 96367; 99285; A9270; J2001; J2543; J3370; J7030; J7050

== ENCOUNTER 2021-05-26 06:10 | Day surgery (SDC) | payer MEDICARE, BC ==
[2021-05-26] MEDS ORDERED: Lactated Ringers 1,000 ML IV SCH (06:15)
[2021-05-26] MEDS ORDERED: Metoclopramide 10 MG/2 ML SDV IVPUSH PRN (07:19)
[2021-05-26] MEDS ORDERED: Naloxone 0.4 MG/ML SDV IVPUSH PRN (07:19)
[2021-05-26] MEDS ORDERED: fentaNYL 100 MCG/2 ML SDV IVPUSH PRN (07:19)
[2021-05-26] MEDS ORDERED: Ondansetron 4 MG/2 ML SDV IVPUSH PRN ×2 (07:19→09:33)
[2021-05-26] MEDS ORDERED: HYDROmorphone 1 MG/ML Syringe IVPUSH PRN (07:19)
[2021-05-26] MEDS ORDERED: Albuterol 0.083% 2.5 MG/3 ML Neb Soln NEB PRN (07:19)
[2021-05-26] MEDS ORDERED: propofoL 50 ML ONE (07:31)
[2021-05-26] MEDS ORDERED: fentaNYL 100 MCG/2 ML SDV ONE (07:34)
[2021-05-26] MEDS ORDERED: Lidocaine 1% 5 ML VIAL ONE (07:34)
[2021-05-26] MEDS ORDERED: ceFAZolin 2 GM in Premix Bag 1 BAG IV ONE (07:43)
[2021-05-26] MEDS ORDERED: Ketorolac 30 MG/ML SDV IVPUSH PRN (09:33)
[2021-05-26] MEDS ORDERED: Promethazine 25 MG/ML SDV IM PRN (09:33)
[2021-05-26] MEDS ORDERED: 50% Dextrose in Water 50 ML Syringe IVPUSH PRN (09:42)
[2021-05-26] MEDS ORDERED: Glucagon,Human Recombinant 1 MG Vial IM PRN (09:42)
[2021-05-26] MEDS ORDERED: Melatonin 3 MG Tab PO PRN (09:42)
[2021-05-26] MEDS ORDERED: Nitroglycerin 0.4 MG Tab.SL SL PRN (09:42)
[2021-05-26] MEDS ORDERED: Sodium Chloride 0.9% 1,000 ML IV SCH (09:45)
[2021-05-26] MEDS: Carbidopa/Levodopa 25-100 MG Tab PO SCH ×2 (14:29→21:42)
[2021-05-26] MEDS: Enoxaparin 30 MG/0.3 ML Syringe SUBCUT SCH (14:29)
[2021-05-26] MEDS: metFORMIN 500 MG Tab PO SCH (17:40)
[2021-05-26] MEDS: Insulin Aspart 100 Units/ML 3 ML Pen SUBCUT SCH (17:41)
[2021-05-26] MEDS ORDERED: Acetaminophen 325 MG/10.15 ML ML PO PRN (19:59)
[2021-05-26] MEDS ORDERED: Sodium Chloride 0.9% 2.5 ML Syringe FLUSH PRN (19:59)
[2021-05-26] MEDS ORDERED: Sodium Chloride 0.9% 10 ML Syringe FLUSH PRN (19:59)
[2021-05-26] MEDS ORDERED: atorvaSTATin 40 MG Tab PO SCH (21:00)
[2021-05-26] MEDS ORDERED: Insulin Glargine,Human Rec. Analog 100 Units/ML 3 ML Pen SUBCUT SCH (21:00)
[2021-05-26] MEDS: Metoprolol Tartrate 50 MG Tab PO SCH (21:44)
[2021-05-26] MEDS: Furosemide 40 MG Tab PO SCH (22:32)
[2021-05-27] MEDS: Insulin Aspart 100 Units/ML 3 ML Pen SUBCUT SCH ×2 (06:53→08:25)
[2021-05-27] MEDS: Carbidopa/Levodopa 25-100 MG Tab PO SCH (06:54)
[2021-05-27] MEDS: Metoprolol Tartrate 50 MG Tab PO SCH (08:21)
[2021-05-27] MEDS: metFORMIN 500 MG Tab PO SCH (08:23)
[2021-05-27] MEDS: Enoxaparin 30 MG/0.3 ML Syringe SUBCUT SCH (08:25)
[2021-05-27] MEDS: Furosemide 40 MG Tab PO SCH (08:43)
[2021-05-27] MEDS ORDERED: Irbesartan 150 MG Tab PO SCH (09:00)
[2021-05-27] MEDS ORDERED: Escitalopram 10 MG Tab PO SCH (09:00)
[2021-05-27] MEDS ORDERED: Furosemide 40 MG Tab PO SCH (09:00)
[2021-05-27] MEDS ORDERED: Diltiazem 180 MG Cap.CD PO SCH (09:00)
[2021-05-27 11:38] VITALS: BP 122/54; PULSE 76
== END 2021-05-27 13:00 | disposition home or self-care (01) ==
LOC: MW.SDS 06:10 → MW.MS 10:50 → MW.SDS 05-27 13:00
PROVIDERS: ATTEND Obstetrics & Gynecology
DX: N81.11 Cystocele, midline (principal); N81.6 Rectocele; N39.0 Urinary tract infection, site not specified; I10 Essential (primary) hypertension; G20 Parkinson's disease; E11.9 Type 2 diabetes mellitus without complications; I48.91 Unspecified atrial fibrillation; I25.10 Atherosclerotic heart disease of native coronary artery without angina pectoris; E78.00 Pure hypercholesterolemia, unspecified; I25.2 Old myocardial infarction; G47.30 Sleep apnea, unspecified; E66.9 Obesity, unspecified; Z68.38 Body mass index [BMI] 38.0-38.9, adult; Z88.8 Allergy status to other drugs, medicaments and biological substances; Z79.82 Long term (current) use of aspirin; Z79.01 Long term (current) use of anticoagulants; Z79.4 Long term (current) use of insulin; Z79.84 Long term (current) use of oral hypoglycemic drugs; Z79.899 Other long term (current) drug therapy; Z87.891 Personal history of nicotine dependence; Z01.812 Encounter for preprocedural laboratory examination; Z20.822 Contact with and (suspected) exposure to COVID-19
CPT/HCPCS: 57260; 82947; A9270; J0690; J1650; J1815; J1885; J2704; J3010; J7030; J7120; U0002; 00942; 99100

== ENCOUNTER 2022-05-30 12:08 | Inpatient (IN) | payer MEDICARE, BC ==
[2022-05-30] MEDS ORDERED: Ondansetron 4 MG/2 ML SDV IVPUSH ONE (12:10)
[2022-05-30] MEDS ORDERED: Sodium Chloride 0.9% 500 ML IV ONE (12:10)
[2022-05-30 12:29] LABS: BASOPHILS PERCENT AUTO 0.2 % (0.0-1.5); EOSINOPHILS ABSOLUTE AUTO 0.1 K/uL (0.0-0.7); EOSINOPHILS PERCENT AUTO 2.1 % (0.0-7.0); HEMOGLOBIN 12.5 g/dL (12.0-16.0); LYMPHOCYTES ABSOLUTE AUTO 0.5 K/uL (0.6-2.4); LYMPHOCYTES PERCENT AUTO 10.2 % (16.0-40.0); MEAN CORPUSCULAR HEMOGLOBIN 31.6 pg (27.0-32.0); MEAN CORPUSCULAR HGB CONC 34.7 g/dL (31.0-37.0); MEAN CORPUSCULAR VOLUME 90.9 fL (80.0-98.0); MONOCYTES ABSOLUTE AUTO 0.2 K/uL (0.0-0.8); NEUTROPHILS PERCENT AUTO 82.5 % (48.0-80.0); NRBC ABSOLUTE 0 K/uL; PLATELET COUNT,PLT 250 K/uL (150-400); RED BLOOD CELL COUNT 3.96 M/uL (4.30-5.90); WHITE BLOOD CELL COUNT,WBC 4.81 K/uL (4.0-11.0)
[2022-05-30 12:52] LABS: APPEARANCE,URINE CLOUDY; BILIRUBIN,URINE NEGATIVE (NEGATIVE); COLOR,URINE YELLOW; GLUCOSE,URINE NEGATIVE (NEGATIVE); KETONES,URINE 15 mg/dL (NEGATIVE); LEUKOCYTE ESTERASE,URINE MODERATE (NEGATIVE); NITRITE,URINE POSITIVE (NEGATIVE); OCCULT BLOOD,URINE SMALL (NEGATIVE); PROTEIN,URINE 30 mg/dL (NEGATIVE)
[2022-05-30 12:56] LABS: A/G RATIO 0.8 (0.9-1.6); ALANINE AMINOTRANSFERASE,ALT 60 IU/L (14-63); ALBUMIN 3.2 g/dL (3.4-5.0); ALKALINE PHOSPHATASE 268 U/L (46-116); ASPARTATE AMNIOTRANSFERASE,AST 30 IU/L (15-37); BILIRUBIN TOTAL 0.8 mg/dL (0.2-1.0); BLOOD UREA NITROGEN,BUN 8 mg/dL (7.0-18.0); CALCIUM 9.3 mg/dL (8.5-10.1); CARBON DIOXIDE,CO2 28.9 mmol/L (21.0-32.0); CHLORIDE,CL 98 mmol/L (98-107); CREATININE 0.7 mg/dL (0.6-1.0); GLUCOSE RANDOM 163 mg/dL (74-106); LIPASE 57 U/L (73-393); MAGNESIUM 1.4 mg/dL (1.8-2.4); PROTEIN TOTAL,TP 7.1 g/dL (6.4-8.2); SODIUM,NA 139 mmol/L (136-145)
[2022-05-30 12:57] LABS: ESTIMATED GFR 92 mL/min (>60)
[2022-05-30 13:03] LABS: AMORPHOUS SEDIMENT,URINE FEW (NEGATIVE); BACTERIA,URINE 2+ (NEGATIVE); EPITHELIAL CELLS,URINE FEW (NONE-FEW); MUCUS,URINE LIGHT (NONE-MOD); RBC,URINE 0-1 (0-2/HPF)
[2022-05-30] MEDS ORDERED: cefTRIAXone 1 GM in Sodium Chloride 0.9% 50 ML IV ONE (13:03)
[2022-05-30] MEDS ORDERED: Magnesium Oxide 400 MG Tab PO ONE (13:03)
[2022-05-30] MEDS ORDERED: Potassium Chloride 20 MEQ Tab.ER PO ONE (13:03)
[2022-05-30] MEDS ORDERED: fentaNYL 100 MCG/2 ML SDV IVPUSH ONE ×2 (13:35→16:25)
[2022-05-30] MEDS ORDERED: Iopamidol 755 MG/ML 500 ML Multipack Bottle IVPUSH ONE (14:08)
[2022-05-30] MEDS ORDERED: Lactated Ringers 1,000 ML IV SCH (17:15)
[2022-05-30] MEDS ORDERED: Glucagon,Human Recombinant 1 MG Vial IM PRN (17:45)
[2022-05-30] MEDS ORDERED: 50% Dextrose in Water 50 ML Syringe IVPUSH PRN (17:45)
[2022-05-30] MEDS ORDERED: Nitroglycerin 0.4 MG Tab.SL SL PRN (17:47)
[2022-05-30] MEDS ORDERED: Docusate Sodium 100 MG Cap PO PRN (17:47)
[2022-05-30] MEDS ORDERED: Melatonin 3 MG Tab PO PRN (17:47)
[2022-05-30] MEDS ORDERED: Cyclobenzaprine 10 MG Tab PO PRN (17:47)
[2022-05-30] MEDS ORDERED: Famotidine 20 MG Tab PO PRN (17:47)
[2022-05-30] MEDS ORDERED: Morphine 2 MG/ML SYRINGE IVPUSH PRN (17:56)
[2022-05-30 18:23] LABS: INR 1.61 (0.86-1.11)
[2022-05-30] MEDS: Lactated Ringers 1,000 ML IV SCH (19:03)
[2022-05-30] MEDS ORDERED: Warfarin 2.5 MG Tab PO SCH (19:45)
[2022-05-30] MEDS: traMADol 50 MG Tab PO PRN (19:47)
[2022-05-30] MEDS: Metoprolol Tartrate 25 MG Tab PO SCH (21:31)
[2022-05-30] MEDS: Carbidopa/Levodopa 25-100 MG Tab PO SCH (21:35)
[2022-05-30] MEDS: atorvaSTATin 40 MG Tab PO SCH (21:36)
[2022-05-30] MEDS: INSULIN GLARGINE SQ SCH (21:36)
[2022-05-31] MEDS: traMADol 50 MG Tab PO PRN ×4 (01:59→20:37)
[2022-05-31] MEDS: Lactated Ringers 1,000 ML IV SCH ×2 (02:06→20:38)
[2022-05-31] MEDS: Carbidopa/Levodopa 25-100 MG Tab PO SCH ×3 (06:34→21:33)
[2022-05-31 06:40] LABS: EOSINOPHILS ABSOLUTE AUTO 0.2 K/uL (0.0-0.7); EOSINOPHILS PERCENT AUTO 3.6 % (0.0-7.0); HEMATOCRIT 35.8 % (36.0-46.0); HEMOGLOBIN 11.9 g/dL (12.0-16.0); LYMPHOCYTES PERCENT AUTO 17.7 % (16.0-40.0); MEAN CORPUSCULAR HEMOGLOBIN 31.2 pg (27.0-32.0); MEAN CORPUSCULAR HGB CONC 33.2 g/dL (31.0-37.0); MEAN CORPUSCULAR VOLUME 93.7 fL (80.0-98.0); MONOCYTES ABSOLUTE AUTO 0.4 K/uL (0.0-0.8); MONOCYTES PERCENT AUTO 7.5 % (0.0-15.0); NEUTROPHILS ABSOLUTE AUTO 3.9 K/uL (1.4-5.7); NEUTROPHILS PERCENT AUTO 71.2 % (48.0-80.0); NRBC ABSOLUTE 0 K/uL; PLATELET COUNT,PLT 257 K/uL (150-400); RED BLOOD CELL COUNT 3.82 M/uL (4.30-5.90); WHITE BLOOD CELL COUNT,WBC 5.48 K/uL (4.0-11.0)
[2022-05-31 07:04] LABS: A/G RATIO 0.8 (0.9-1.6); BILIRUBIN TOTAL 0.4 mg/dL (0.2-1.0); CALCIUM 9.1 mg/dL (8.5-10.1); CARBON DIOXIDE,CO2 31.5 mmol/L (21.0-32.0); CREATININE 0.7 mg/dL (0.6-1.0); EST CRCL DRUG DOSING (CG) 57.46 mL/min; MAGNESIUM 1.7 mg/dL (1.8-2.4); POTASSIUM,K 3.1 mmol/L (3.5-5.1); PROTEIN TOTAL,TP 6.9 g/dL (6.4-8.2)
[2022-05-31] MEDS: Insulin Aspart 100 Units/ML 3 ML Pen SUBCUT SCH ×3 (07:09→19:00)
[2022-05-31] MEDS ORDERED: Magnesium Sulfate/Water 2 GM in Premix Bag 1 BAG IV ONE (07:45)
[2022-05-31] MEDS ORDERED: Potassium Chloride 20 MEQ Tab.ER PO ONE (07:45)
[2022-05-31] MEDS ORDERED: Warfarin 5 MG Tab PO SCH (08:00)
[2022-05-31] MEDS ORDERED: Ondansetron 4 MG/2 ML SDV IVPUSH PRN (08:04)
[2022-05-31] MEDS: Escitalopram 10 MG Tab PO SCH (08:35)
[2022-05-31] MEDS: Diltiazem 180 MG Cap.CD PO SCH (08:37)
[2022-05-31] MEDS: Aspirin 81 MG Tab.Chew PO SCH (08:41)
[2022-05-31] MEDS: Metoprolol Tartrate 25 MG Tab PO SCH ×2 (08:42→21:27)
[2022-05-31] MEDS: Acetaminophen 325 MG Tab PO PRN ×2 (11:18→18:59)
[2022-05-31] MEDS: Cyclobenzaprine 10 MG Tab PO PRN (11:20)
[2022-05-31] MEDS ORDERED: cefTRIAXone 1 GM in Sodium Chloride 0.9% 50 ML IV SCH (13:00)
[2022-05-31] MEDS ORDERED: Warfarin 5 MG, Warfarin 2.5 MG PO SCH ×2 (14:00)
[2022-05-31] MEDS: Warfarin Sliding Scale PO SCH (19:46)
[2022-05-31] MEDS: atorvaSTATin 40 MG Tab PO SCH (21:27)
[2022-05-31] MEDS: INSULIN GLARGINE SQ SCH (21:34)
[2022-06-01] MEDS: Acetaminophen 325 MG Tab PO PRN ×2 (01:09→16:23)
[2022-06-01] MEDS: traMADol 50 MG Tab PO PRN ×2 (03:04→17:35)
[2022-06-01] MEDS: Lactated Ringers 1,000 ML IV SCH ×3 (03:50→21:27)
[2022-06-01] MEDS: Carbidopa/Levodopa 25-100 MG Tab PO SCH ×3 (05:10→21:13)
[2022-06-01 06:38] LABS: BASOPHILS PERCENT AUTO 0.2 % (0.0-1.5); EOSINOPHILS ABSOLUTE AUTO 0.2 K/uL (0.0-0.7); EOSINOPHILS PERCENT AUTO 4.5 % (0.0-7.0); HEMATOCRIT 29.7 % (36.0-46.0); HEMOGLOBIN 9.9 g/dL (12.0-16.0); LYMPHOCYTES ABSOLUTE AUTO 0.9 K/uL (0.6-2.4); LYMPHOCYTES PERCENT AUTO 17.8 % (16.0-40.0); MEAN CORPUSCULAR HEMOGLOBIN 30.9 pg (27.0-32.0); MEAN CORPUSCULAR HGB CONC 33.3 g/dL (31.0-37.0); MEAN CORPUSCULAR VOLUME 92.8 fL (80.0-98.0); MONOCYTES ABSOLUTE AUTO 0.4 K/uL (0.0-0.8); MONOCYTES PERCENT AUTO 7.4 % (0.0-15.0); NEUTROPHILS ABSOLUTE AUTO 3.7 K/uL (1.4-5.7); NEUTROPHILS PERCENT AUTO 70.1 % (48.0-80.0); NRBC ABSOLUTE 0 K/uL; PLATELET COUNT,PLT 224 K/uL (150-400); WHITE BLOOD CELL COUNT,WBC 5.29 K/uL (4.0-11.0)
[2022-06-01 07:18] LABS: A/G RATIO 0.8 (0.9-1.6); ALBUMIN 2.7 g/dL (3.4-5.0); BILIRUBIN TOTAL 0.3 mg/dL (0.2-1.0); CALCIUM 8.2 mg/dL (8.5-10.1); CREATININE 0.6 mg/dL (0.6-1.0); EST CRCL DRUG DOSING (CG) 67.03 mL/min; POTASSIUM,K 3.6 mmol/L (3.5-5.1); PROTEIN TOTAL,TP 5.9 g/dL (6.4-8.2)
[2022-06-01] MEDS: Insulin Aspart 100 Units/ML 3 ML Pen SUBCUT SCH ×3 (08:03→17:38)
[2022-06-01] MEDS: Aspirin 81 MG Tab.Chew PO SCH (08:05)
[2022-06-01] MEDS: Diltiazem 180 MG Cap.CD PO SCH (08:05)
[2022-06-01] MEDS: Metoprolol Tartrate 25 MG Tab PO SCH ×2 (08:06→21:13)
[2022-06-01] MEDS: Escitalopram 10 MG Tab PO SCH (08:06)
[2022-06-01] MEDS ORDERED: oxyCODONE 5 MG/5 ML Cup PO PRN (09:06)
[2022-06-01] MEDS: Furosemide 80 MG Tab PO SCH (10:38)
[2022-06-01 11:31] LABS: INR 2.52 (0.86-1.11)
[2022-06-01] MEDS ORDERED: Lidocaine 5% 700 MG Patch TRDERM ONE (11:52)
[2022-06-01] MEDS: Cyclobenzaprine 10 MG Tab PO PRN ×2 (13:43→21:24)
[2022-06-01] MEDS ORDERED: Warfarin 5 MG Tab PO SCH (14:00)
[2022-06-01] MEDS: Warfarin Sliding Scale PO SCH (16:04)
[2022-06-01] MEDS: Furosemide 40 MG Tab PO SCH (17:35)
[2022-06-01] MEDS: atorvaSTATin 40 MG Tab PO SCH (21:13)
[2022-06-01] MEDS: INSULIN GLARGINE SQ SCH (21:14)
[2022-06-02] MEDS: traMADol 50 MG Tab PO PRN ×3 (00:02→20:08)
[2022-06-02] MEDS: Lactated Ringers 1,000 ML IV SCH ×3 (04:59→20:44)
[2022-06-02 06:12] LABS: INR 2.23 (0.86-1.11)
[2022-06-02] MEDS: Carbidopa/Levodopa 25-100 MG Tab PO SCH ×3 (06:34→22:00)
[2022-06-02] MEDS ORDERED: Cyclobenzaprine 10 MG Tab PO PRN (07:19)
[2022-06-02 07:31] LABS: EOSINOPHILS ABSOLUTE AUTO 0.3 K/uL (0.0-0.7); EOSINOPHILS PERCENT AUTO 4.5 % (0.0-7.0); HEMATOCRIT 32.4 % (36.0-46.0); LYMPHOCYTES ABSOLUTE AUTO 0.9 K/uL (0.6-2.4); LYMPHOCYTES PERCENT AUTO 13.1 % (16.0-40.0); MEAN CORPUSCULAR HEMOGLOBIN 31.3 pg (27.0-32.0); MEAN CORPUSCULAR VOLUME 92.3 fL (80.0-98.0); MONOCYTES ABSOLUTE AUTO 0.5 K/uL (0.0-0.8); MONOCYTES PERCENT AUTO 7.7 % (0.0-15.0); NEUTROPHILS ABSOLUTE AUTO 5.1 K/uL (1.4-5.7); NEUTROPHILS PERCENT AUTO 74.7 % (48.0-80.0); NRBC ABSOLUTE 0 K/uL; PLATELET COUNT,PLT 246 K/uL (150-400); RED BLOOD CELL COUNT 3.51 M/uL (4.30-5.90); WHITE BLOOD CELL COUNT,WBC 6.88 K/uL (4.0-11.0)
[2022-06-02 07:34] LABS: A/G RATIO 0.8 (0.9-1.6); BILIRUBIN TOTAL 0.5 mg/dL (0.2-1.0); CALCIUM 8.8 mg/dL (8.5-10.1); CARBON DIOXIDE,CO2 33.6 mmol/L (21.0-32.0); CREATININE 0.6 mg/dL (0.6-1.0); EST CRCL DRUG DOSING (CG) 67.03 mL/min; POTASSIUM,K 3.2 mmol/L (3.5-5.1); PROTEIN TOTAL,TP 6.9 g/dL (6.4-8.2)
[2022-06-02] MEDS: Insulin Aspart 100 Units/ML 3 ML Pen SUBCUT SCH ×3 (07:39→17:10)
[2022-06-02] MEDS: Diltiazem 180 MG Cap.CD PO SCH (08:43)
[2022-06-02] MEDS: Furosemide 80 MG Tab PO SCH (08:44)
[2022-06-02] MEDS: Escitalopram 10 MG Tab PO SCH (08:44)
[2022-06-02] MEDS: Metoprolol Tartrate 25 MG Tab PO SCH ×2 (08:44→22:01)
[2022-06-02] MEDS: Aspirin 81 MG Tab.Chew PO SCH (08:45)
[2022-06-02] MEDS ORDERED: Potassium Chloride 20 MEQ Tab.ER PO ONE (08:55)
[2022-06-02] MEDS ORDERED: Furosemide 80 MG Tab PO SCH (09:00)
[2022-06-02] MEDS ORDERED: Magnesium Sulfate/Water 4 GM in Premix Bag 1 BAG IV ONE (09:45)
[2022-06-02] MEDS ORDERED: oxyCODONE 5 MG Tab PO PRN ×2 (10:35→10:37)
[2022-06-02] MEDS ORDERED: Docusate Sodium 100 MG Cap PO PRN (10:36)
[2022-06-02] MEDS: Docusate Sodium 100 MG Cap PO SCH ×2 (11:07→22:00)
[2022-06-02] MEDS: Polyethylene Glycol 3350 Powder 17 GM Packet PO SCH (11:15)
[2022-06-02] MEDS ORDERED: Warfarin 5 MG Tab PO SCH (14:00)
[2022-06-02] MEDS: Warfarin Sliding Scale PO SCH (14:38)
[2022-06-02] MEDS ORDERED: fentaNYL 12 MCG/HR Transdermal Patch TRDERM PRN (17:06)
[2022-06-02] MEDS ORDERED: fentaNYL 50 MCG/ML SDV IVPUSH PRN (17:34)
[2022-06-02] MEDS: Furosemide 40 MG Tab PO SCH (17:37)
[2022-06-02] MEDS: atorvaSTATin 40 MG Tab PO SCH (22:00)
[2022-06-02] MEDS: INSULIN GLARGINE SQ SCH (22:05)
[2022-06-03] MEDS: traMADol 50 MG Tab PO PRN (02:02)
[2022-06-03] MEDS: Lactated Ringers 1,000 ML IV SCH (04:52)
[2022-06-03] MEDS: Carbidopa/Levodopa 25-100 MG Tab PO SCH ×3 (06:14→21:10)
[2022-06-03 06:43] LABS: EOSINOPHILS ABSOLUTE AUTO 0.3 K/uL (0.0-0.7); EOSINOPHILS PERCENT AUTO 4.9 % (0.0-7.0); HEMATOCRIT 32.5 % (36.0-46.0); HEMOGLOBIN 11.1 g/dL (12.0-16.0); LYMPHOCYTES ABSOLUTE AUTO 0.7 K/uL (0.6-2.4); LYMPHOCYTES PERCENT AUTO 9.7 % (16.0-40.0); MEAN CORPUSCULAR HEMOGLOBIN 31.4 pg (27.0-32.0); MEAN CORPUSCULAR HGB CONC 34.2 g/dL (31.0-37.0); MEAN CORPUSCULAR VOLUME 91.8 fL (80.0-98.0); MONOCYTES ABSOLUTE AUTO 0.5 K/uL (0.0-0.8); MONOCYTES PERCENT AUTO 7.5 % (0.0-15.0); NEUTROPHILS ABSOLUTE AUTO 5.2 K/uL (1.4-5.7); NEUTROPHILS PERCENT AUTO 77.9 % (48.0-80.0); NRBC ABSOLUTE 0 K/uL; PLATELET COUNT,PLT 256 K/uL (150-400); RED BLOOD CELL COUNT 3.54 M/uL (4.30-5.90)
[2022-06-03 07:34] LABS: INR 1.88 (0.86-1.11)
[2022-06-03] MEDS: Insulin Aspart 100 Units/ML 3 ML Pen SUBCUT SCH ×3 (08:56→16:55)
[2022-06-03 09:07] LABS: A/G RATIO 0.7 (0.9-1.6); ALBUMIN 2.9 g/dL (3.4-5.0); BILIRUBIN TOTAL 0.6 mg/dL (0.2-1.0); CALCIUM 8.5 mg/dL (8.5-10.1); CARBON DIOXIDE,CO2 30.3 mmol/L (21.0-32.0); CREATININE 0.6 mg/dL (0.6-1.0); EST CRCL DRUG DOSING (CG) 67.03 mL/min; MAGNESIUM 1.9 mg/dL (1.8-2.4); POTASSIUM,K 3.4 mmol/L (3.5-5.1); PROTEIN TOTAL,TP 6.8 g/dL (6.4-8.2)
[2022-06-03] MEDS: Polyethylene Glycol 3350 Powder 17 GM Packet PO SCH (09:30)
[2022-06-03] MEDS: Aspirin 81 MG Tab.Chew PO SCH (09:30)
[2022-06-03] MEDS: Furosemide 80 MG Tab PO SCH (09:31)
[2022-06-03] MEDS: Diltiazem 180 MG Cap.CD PO SCH (09:31)
[2022-06-03] MEDS: Metoprolol Tartrate 25 MG Tab PO SCH ×2 (09:31→21:09)
[2022-06-03] MEDS ORDERED: Potassium Chloride 20 MEQ Tab.ER PO ONE (09:32)
[2022-06-03] MEDS: Escitalopram 10 MG Tab PO SCH (09:32)
[2022-06-03] MEDS: Acetaminophen 325 MG Tab PO SCH ×3 (09:33→21:10)
[2022-06-03] MEDS: Cyclobenzaprine 10 MG Tab PO SCH ×2 (09:34→16:53)
[2022-06-03] MEDS ORDERED: traMADol 50 MG Tab PO PRN (09:42)
[2022-06-03] MEDS: Docusate Sodium 100 MG Cap PO SCH ×3 (10:24→22:08)
[2022-06-03] MEDS: Warfarin Sliding Scale PO SCH (13:58)
[2022-06-03] MEDS ORDERED: Warfarin 5 MG, Warfarin 2.5 MG PO SCH ×2 (14:00)
[2022-06-03] MEDS: Furosemide 40 MG Tab PO SCH (17:48)
[2022-06-03] MEDS: atorvaSTATin 40 MG Tab PO SCH (21:09)
[2022-06-03] MEDS: INSULIN GLARGINE SQ SCH (21:13)
[2022-06-04] MEDS: Cyclobenzaprine 10 MG Tab PO SCH (00:26)
[2022-06-04] MEDS: Acetaminophen 325 MG Tab PO SCH ×5 (02:34→23:00)
[2022-06-04] MEDS: Carbidopa/Levodopa 25-100 MG Tab PO SCH ×4 (05:49→21:21)
[2022-06-04 05:54] LABS: INR 1.92 (0.86-1.11)
[2022-06-04 06:02] LABS: CARBON DIOXIDE,CO2 31.3 mmol/L (21.0-32.0); CREATININE 0.7 mg/dL (0.6-1.0); EST CRCL DRUG DOSING (CG) 57.46 mL/min; POTASSIUM,K 3.4 mmol/L (3.5-5.1)
[2022-06-04] MEDS ORDERED: Potassium Chloride 20 MEQ Tab.ER PO ONE (06:59)
[2022-06-04] MEDS ORDERED: Haloperidol Lactate 5 MG/ML SDV IM ONE (07:52)
[2022-06-04] MEDS: Furosemide 80 MG Tab PO SCH (08:04)
[2022-06-04] MEDS: Escitalopram 10 MG Tab PO SCH (08:05)
[2022-06-04] MEDS: Diltiazem 180 MG Cap.CD PO SCH (08:05)
[2022-06-04] MEDS: Metoprolol Tartrate 25 MG Tab PO SCH ×2 (08:05→20:52)
[2022-06-04] MEDS: Polyethylene Glycol 3350 Powder 17 GM Packet PO SCH (08:06)
[2022-06-04] MEDS: Insulin Aspart 100 Units/ML 3 ML Pen SUBCUT SCH ×3 (08:15→18:27)
[2022-06-04] MEDS: Aspirin 81 MG Tab.Chew PO SCH (08:16)
[2022-06-04] MEDS ORDERED: Haloperidol Lactate 5 MG/ML SDV IM PRN (08:42)
[2022-06-04] MEDS: Docusate Sodium 100 MG Cap PO SCH ×2 (12:44→23:00)
[2022-06-04] MEDS ORDERED: Warfarin 5 MG, Warfarin 2.5 MG PO SCH ×2 (15:30)
[2022-06-04] MEDS: Haloperidol 1 MG Tab PO PRN ×2 (15:40→22:59)
[2022-06-04] MEDS: Warfarin Sliding Scale PO SCH (15:43)
[2022-06-04] MEDS: Furosemide 40 MG Tab PO SCH (18:27)
[2022-06-04] MEDS: atorvaSTATin 40 MG Tab PO SCH (20:52)
[2022-06-04] MEDS: INSULIN GLARGINE SQ SCH (20:53)
[2022-06-05 05:21] LABS: INR 2.49 (0.86-1.11)
[2022-06-05] MEDS: Acetaminophen 325 MG Tab PO SCH ×4 (05:32→23:07)
[2022-06-05] MEDS: Carbidopa/Levodopa 25-100 MG Tab PO SCH ×4 (05:32→21:21)
[2022-06-05] MEDS: Furosemide 80 MG Tab PO SCH (08:58)
[2022-06-05] MEDS: Escitalopram 10 MG Tab PO SCH (08:59)
[2022-06-05] MEDS: Metoprolol Tartrate 25 MG Tab PO SCH ×2 (09:00→20:23)
[2022-06-05] MEDS: Diltiazem 180 MG Cap.CD PO SCH (09:01)
[2022-06-05] MEDS: Aspirin 81 MG Tab.Chew PO SCH (09:01)
[2022-06-05] MEDS: Polyethylene Glycol 3350 Powder 17 GM Packet PO SCH (09:01)
[2022-06-05] MEDS: Insulin Aspart 100 Units/ML 3 ML Pen SUBCUT SCH ×3 (09:08→16:42)
[2022-06-05] MEDS: Docusate Sodium 100 MG Cap PO SCH ×2 (11:53→23:07)
[2022-06-05] MEDS: Warfarin Sliding Scale PO SCH (13:44)
[2022-06-05] MEDS ORDERED: Warfarin 5 MG Tab PO SCH (14:00)
[2022-06-05] MEDS: Furosemide 40 MG Tab PO SCH (17:32)
[2022-06-05] MEDS: Haloperidol 1 MG Tab PO PRN (20:23)
[2022-06-05] MEDS: atorvaSTATin 40 MG Tab PO SCH (20:23)
[2022-06-05] MEDS: INSULIN GLARGINE SQ SCH (20:28)
[2022-06-05] MEDS: Phenol 1.4% Oral Spray 177 ML Bottle MUCMEM PRN (21:21)
[2022-06-06] MEDS: Carbidopa/Levodopa 25-100 MG Tab PO SCH ×4 (06:10→21:23)
[2022-06-06] MEDS: Acetaminophen 325 MG Tab PO SCH ×4 (06:10→23:48)
[2022-06-06] MEDS: Insulin Aspart 100 Units/ML 3 ML Pen SUBCUT SCH ×3 (06:35→16:41)
[2022-06-06 06:50] LABS: INR 2.6 (0.86-1.11)
[2022-06-06 07:13] LABS: BASOPHILS PERCENT AUTO 0.1 % (0.0-1.5); EOSINOPHILS ABSOLUTE AUTO 0.4 K/uL (0.0-0.7); EOSINOPHILS PERCENT AUTO 5.3 % (0.0-7.0); HEMATOCRIT 35.7 % (36.0-46.0); HEMOGLOBIN 12.4 g/dL (12.0-16.0); LYMPHOCYTES ABSOLUTE AUTO 0.8 K/uL (0.6-2.4); LYMPHOCYTES PERCENT AUTO 11.2 % (16.0-40.0); MEAN CORPUSCULAR HEMOGLOBIN 31.2 pg (27.0-32.0); MEAN CORPUSCULAR HGB CONC 34.7 g/dL (31.0-37.0); MEAN CORPUSCULAR VOLUME 89.9 fL (80.0-98.0); MONOCYTES ABSOLUTE AUTO 0.6 K/uL (0.0-0.8); MONOCYTES PERCENT AUTO 7.6 % (0.0-15.0); NEUTROPHILS ABSOLUTE AUTO 5.7 K/uL (1.4-5.7); NEUTROPHILS PERCENT AUTO 75.8 % (48.0-80.0); NRBC ABSOLUTE 0 K/uL; PLATELET COUNT,PLT 329 K/uL (150-400); RED BLOOD CELL COUNT 3.97 M/uL (4.30-5.90); WHITE BLOOD CELL COUNT,WBC 7.52 K/uL (4.0-11.0)
[2022-06-06 07:22] LABS: A/G RATIO 0.7 (0.9-1.6); ALBUMIN 2.8 g/dL (3.4-5.0); CALCIUM 9.1 mg/dL (8.5-10.1); CARBON DIOXIDE,CO2 31.2 mmol/L (21.0-32.0); CREATININE 0.6 mg/dL (0.6-1.0); EST CRCL DRUG DOSING (CG) 67.03 mL/min
[2022-06-06 07:25] LABS: POTASSIUM,K 2.2 mmol/L (3.5-5.1)
[2022-06-06] MEDS: Potassium Chloride 20 MEQ in Premix Bag 1 BAG IV SCH ×3 (07:52→12:37)
[2022-06-06] MEDS ORDERED: Magnesium Sulfate/Water 4 GM in Premix Bag 1 BAG IV ONE (09:24)
[2022-06-06] MEDS: Diltiazem 180 MG Cap.CD PO SCH (09:48)
[2022-06-06] MEDS: Escitalopram 10 MG Tab PO SCH (09:48)
[2022-06-06] MEDS: Polyethylene Glycol 3350 Powder 17 GM Packet PO SCH (09:49)
[2022-06-06] MEDS: Aspirin 81 MG Tab.Chew PO SCH (09:49)
[2022-06-06] MEDS: Metoprolol Tartrate 25 MG Tab PO SCH ×2 (09:49→20:54)
[2022-06-06] MEDS: Furosemide 80 MG Tab PO SCH (09:49)
[2022-06-06] MEDS: Docusate Sodium 100 MG Cap PO SCH ×2 (09:49→23:48)
[2022-06-06] MEDS: Phenol 1.4% Oral Spray 177 ML Bottle MUCMEM PRN (12:40)
[2022-06-06] MEDS ORDERED: Warfarin 5 MG Tab PO SCH (14:00)
[2022-06-06] MEDS: Warfarin Sliding Scale PO SCH (14:14)
[2022-06-06] MEDS: Furosemide 40 MG Tab PO SCH (17:23)
[2022-06-06 19:12] LABS: CALCIUM 8.7 mg/dL (8.5-10.1); CARBON DIOXIDE,CO2 31.8 mmol/L (21.0-32.0); CREATININE 0.7 mg/dL (0.6-1.0); EST CRCL DRUG DOSING (CG) 57.46 mL/min; MAGNESIUM 2.1 mg/dL (1.8-2.4); POTASSIUM,K 2.8 mmol/L (3.5-5.1)
[2022-06-06] MEDS: INSULIN GLARGINE SQ SCH (20:54)
[2022-06-06] MEDS: atorvaSTATin 40 MG Tab PO SCH (20:55)
[2022-06-07] MEDS: Potassium Chloride 100 ML IV SCH ×3 (02:57→07:01)
[2022-06-07 06:08] LABS: BASOPHILS PERCENT AUTO 0.2 % (0.0-1.5); EOSINOPHILS ABSOLUTE AUTO 0.6 K/uL (0.0-0.7); LYMPHOCYTES ABSOLUTE AUTO 0.9 K/uL (0.6-2.4); LYMPHOCYTES PERCENT AUTO 14.2 % (16.0-40.0); MEAN CORPUSCULAR HEMOGLOBIN 30.9 pg (27.0-32.0); MEAN CORPUSCULAR HGB CONC 34.3 g/dL (31.0-37.0); MEAN CORPUSCULAR VOLUME 90.2 fL (80.0-98.0); MONOCYTES ABSOLUTE AUTO 0.4 K/uL (0.0-0.8); MONOCYTES PERCENT AUTO 7.2 % (0.0-15.0); NEUTROPHILS ABSOLUTE AUTO 4.2 K/uL (1.4-5.7); NEUTROPHILS PERCENT AUTO 69.4 % (48.0-80.0); NRBC ABSOLUTE 0 K/uL; PLATELET COUNT,PLT 372 K/uL (150-400); RED BLOOD CELL COUNT 3.88 M/uL (4.30-5.90); WHITE BLOOD CELL COUNT,WBC 6.11 K/uL (4.0-11.0)
[2022-06-07 06:21] LABS: INR 3.42 (0.86-1.11)
[2022-06-07 06:30] LABS: A/G RATIO 0.7 (0.9-1.6); ALBUMIN 2.8 g/dL (3.4-5.0); BILIRUBIN TOTAL 0.7 mg/dL (0.2-1.0); CARBON DIOXIDE,CO2 31.5 mmol/L (21.0-32.0); CREATININE 0.6 mg/dL (0.6-1.0); EST CRCL DRUG DOSING (CG) 67.03 mL/min; MAGNESIUM 1.9 mg/dL (1.8-2.4); POTASSIUM,K 2.9 mmol/L (3.5-5.1); PROTEIN TOTAL,TP 6.8 g/dL (6.4-8.2)
[2022-06-07] MEDS: Insulin Aspart 100 Units/ML 3 ML Pen SUBCUT SCH ×3 (06:39→18:38)
[2022-06-07] MEDS: Carbidopa/Levodopa 25-100 MG Tab PO SCH ×3 (07:01→21:25)
[2022-06-07] MEDS: Acetaminophen 325 MG Tab PO SCH ×4 (07:02→23:47)
[2022-06-07] MEDS ORDERED: Dexamethasone 4 MG/ML SDV IVPUSH ONE (09:15)
[2022-06-07] MEDS: Polyethylene Glycol 3350 Powder 17 GM Packet PO SCH (09:39)
[2022-06-07] MEDS: Aspirin 81 MG Tab.Chew PO SCH (09:40)
[2022-06-07] MEDS: Metoprolol Tartrate 25 MG Tab PO SCH ×2 (09:40→21:26)
[2022-06-07] MEDS: Diltiazem 180 MG Cap.CD PO SCH (09:41)
[2022-06-07] MEDS: Furosemide 40 MG Tab PO SCH ×2 (09:43→18:09)
[2022-06-07] MEDS: Escitalopram 10 MG Tab PO SCH (09:43)
[2022-06-07] MEDS: Docusate Sodium 100 MG Cap PO SCH ×3 (10:29→23:46)
[2022-06-07] MEDS: Warfarin Sliding Scale PO SCH (14:08)
[2022-06-07] MEDS: atorvaSTATin 40 MG Tab PO SCH (21:27)
[2022-06-07] MEDS: INSULIN GLARGINE SQ SCH (21:28)
[2022-06-08] MEDS: Acetaminophen 325 MG Tab PO SCH (06:27)
[2022-06-08] MEDS: Carbidopa/Levodopa 25-100 MG Tab PO SCH (06:29)
[2022-06-08 07:21] VITALS: BP 158/64; PULSE 87
[2022-06-08] MEDS: Insulin Aspart 100 Units/ML 3 ML Pen SUBCUT SCH (07:26)
[2022-06-08] MEDS: Polyethylene Glycol 3350 Powder 17 GM Packet PO SCH (08:33)
[2022-06-08] MEDS: Aspirin 81 MG Tab.Chew PO SCH (08:33)
[2022-06-08] MEDS: Diltiazem 180 MG Cap.CD PO SCH (08:34)
[2022-06-08] MEDS: Furosemide 40 MG Tab PO SCH (08:35)
[2022-06-08] MEDS: Metoprolol Tartrate 25 MG Tab PO SCH (08:35)
[2022-06-08] MEDS: Escitalopram 10 MG Tab PO SCH (08:36)
== END 2022-06-08 10:20 | disposition swing bed (61) | DRG 920 ==
LOC: MW.ED 12:08 → MW.MS 17:02
PROVIDERS: ADMIT Internal Medicine; ATTEND Internal Medicine
DX: T85.848A Pain due to other internal prosthetic devices, implants and grafts, initial encounter (principal); N30.00 Acute cystitis without hematuria; Z68.41 Body mass index [BMI] 40.0-44.9, adult; E66.9 Obesity, unspecified; E11.9 Type 2 diabetes mellitus without complications; E78.5 Hyperlipidemia, unspecified; I25.10 Atherosclerotic heart disease of native coronary artery without angina pectoris; I48.91 Unspecified atrial fibrillation; G20 Parkinson's disease; Z66 Do not resuscitate; M54.50 Low back pain, unspecified; E87.6 Hypokalemia; E83.42 Hypomagnesemia; Z95.4 Presence of other heart-valve replacement; Z79.4 Long term (current) use of insulin; Z98.890 Other specified postprocedural states; Z79.82 Long term (current) use of aspirin; Z95.1 Presence of aortocoronary bypass graft; Z79.899 Other long term (current) drug therapy; I25.2 Old myocardial infarction; Z98.51 Tubal ligation status
CPT/HCPCS: 36415; 70450; 70450-26; 72131; 72131-26; 74177; 74177-26; 80048; 80053; 81001; 82947; 83690; 83735; 84132; 85025; 85610; 96361; 96365; 96375; 96376; 97110-GP; 97162-GP; 97530-GP; 99222; 99231; 99232; 99239; 99284; 99285-25; A9270-GY; J0696; J1630; J2270; J2405; J3010; J3475; J3480; J3490; J7030; J7120; Q9967; U0002

== ENCOUNTER 2022-09-03 11:08 | Emergency (ER) | payer MEDICARE, BC ==
[2022-09-03] MEDS ORDERED: Sodium Chloride 0.9% 10 ML Syringe FLUSH PRN (11:17)
[2022-09-03] MEDS ORDERED: Sodium Chloride 0.9% 2.5 ML Syringe FLUSH PRN (11:17)
[2022-09-03] MEDS ORDERED: Prochlorperazine 10 MG/2 ML SDV IVPUSH ONE (11:21)
[2022-09-03] MEDS ORDERED: Acetaminophen 500 MG Tab PO ONE (11:21)
[2022-09-03 11:33] LABS: BILIRUBIN,URINE NEGATIVE (NEGATIVE); COLOR,URINE YELLOW; GLUCOSE,URINE NEGATIVE (NEGATIVE); KETONES,URINE TRACE mg/dL (NEGATIVE); LEUKOCYTE ESTERASE,URINE MODERATE (NEGATIVE); NITRITE,URINE POSITIVE (NEGATIVE); OCCULT BLOOD,URINE SMALL (NEGATIVE); PROTEIN,URINE NEGATIVE (NEGATIVE); UROBILINOGEN,URINE 0.2 EU/dL (<2.0)
[2022-09-03 11:34] LABS: APPEARANCE,URINE CLOUDY
[2022-09-03 11:42] LABS: EPITHELIAL CELLS,URINE MANY (NONE-FEW); RBC,URINE 0-5 (0-2/HPF); RENAL EPITHELIAL CELLS,URINE OCCASIONAL; SQUAMOUS EPITHELIAL CELLS,UR MANY
[2022-09-03 11:43] LABS: AMORPHOUS SEDIMENT,URINE MANY (NEGATIVE); BACTERIA,URINE MANY (NEGATIVE); CALCIUM OXALATE CRYSTALS,URINE FEW (NEGATIVE); MUCUS,URINE OCCASIONAL (NONE-MOD)
[2022-09-03 11:53] LABS: BASOPHILS PERCENT AUTO 0.2 % (0.0-1.5); EOSINOPHILS ABSOLUTE AUTO 0.2 K/uL (0.0-0.7); EOSINOPHILS PERCENT AUTO 3.5 % (0.0-7.0); HEMATOCRIT 37.8 % (36.0-46.0); HEMOGLOBIN 12.9 g/dL (12.0-16.0); LYMPHOCYTES ABSOLUTE AUTO 0.7 K/uL (0.6-2.4); LYMPHOCYTES PERCENT AUTO 13.7 % (16.0-40.0); MEAN CORPUSCULAR HEMOGLOBIN 30.2 pg (27.0-32.0); MEAN CORPUSCULAR HGB CONC 34.1 g/dL (31.0-37.0); MEAN CORPUSCULAR VOLUME 88.5 fL (80.0-98.0); MONOCYTES ABSOLUTE AUTO 0.4 K/uL (0.0-0.8); NEUTROPHILS ABSOLUTE AUTO 4.1 K/uL (1.4-5.7); NEUTROPHILS PERCENT AUTO 75.6 % (48.0-80.0); NRBC ABSOLUTE 0 K/uL; PLATELET COUNT,PLT 332 K/uL (150-400); RED BLOOD CELL COUNT 4.27 M/uL (4.30-5.90); WHITE BLOOD CELL COUNT,WBC 5.41 K/uL (4.0-11.0)
[2022-09-03 12:07] LABS: INR 1.55 (0.86-1.11); PTT,PARTIAL THROMBOPLSTIN TIME 27.1 SEC (23.9-30.7)
[2022-09-03 12:16] LABS: CALCIUM 8.9 mg/dL (8.5-10.1); CREATININE 0.7 mg/dL (0.6-1.0); EST CRCL DRUG DOSING (CG) 57.46 mL/min; POTASSIUM,K 2.8 mmol/L (3.5-5.1)
[2022-09-03 19:27] VITALS: BP 118/66; PULSE 86
== END 2022-09-03 15:00 | disposition home or self-care (01) ==
LOC: MW.ED 11:08
DX: R51.9 Headache, unspecified (principal); R53.1 Weakness; I89.1 Lymphangitis; I25.10 Atherosclerotic heart disease of native coronary artery without angina pectoris; I10 Essential (primary) hypertension; I25.2 Old myocardial infarction; E78.00 Pure hypercholesterolemia, unspecified; E11.9 Type 2 diabetes mellitus without complications; E66.9 Obesity, unspecified; Z68.33 Body mass index [BMI] 33.0-33.9, adult; Z86.16 Personal history of COVID-19; Z88.8 Allergy status to other drugs, medicaments and biological substances; Z88.5 Allergy status to narcotic agent; Z79.82 Long term (current) use of aspirin; Z79.84 Long term (current) use of oral hypoglycemic drugs; Z79.4 Long term (current) use of insulin; Z79.899 Other long term (current) drug therapy
CPT/HCPCS: 36415; 70450; 71045; 80048; 81001; 85025; 85610; 85730; 93005; 96374; 99285; A9270; J0780; J3490; 93010; 99284

== ENCOUNTER 2023-02-27 21:28 | Emergency (ER) | payer MEDICARE, BC ==
[2023-02-27] MEDS ORDERED: Sodium Chloride 0.9% 10 ML Syringe FLUSH PRN (21:34)
[2023-02-27] MEDS ORDERED: Sodium Chloride 0.9% 2.5 ML Syringe FLUSH PRN (21:34)
[2023-02-27] MEDS ORDERED: fentaNYL 50 MCG/ML SDV IVPUSH ONE ×2 (21:45→22:49)
[2023-02-27] MEDS ORDERED: Ondansetron 4 MG/2 ML SDV IVPUSH ONE (21:45)
[2023-02-27 21:58] LABS: BASOPHILS ABSOLUTE AUTO 0.01 K/uL (0.00-0.20); BASOPHILS PERCENT AUTO 0.1 % (0.0-1.0); EOSINOPHILS ABSOLUTE AUTO 0.16 K/uL (0.00-0.45); EOSINOPHILS PERCENT AUTO 2.1 % (0.0-6.0); HEMATOCRIT 36.6 % (37.0-47.0); HEMOGLOBIN 12.4 g/dL (12.0-16.0); IMMATURE GRAN ABSOLUTE AUTO 0.03 K/uL (0.00-0.05); IMMATURE GRAN PERCENT AUTO 0.4 % (0.0-0.4); LYMPHOCYTES PERCENT AUTO 26.6 % (24.0-44.0); MEAN CORPUSCULAR HEMOGLOBIN 30.2 pg (28.0-32.0); MEAN CORPUSCULAR HGB CONC 33.9 g/dL (32.0-36.0); MEAN CORPUSCULAR VOLUME 89.3 fL (83.0-99.0); MEAN PLATELET VOLUME 10.5 fL (9.4-12.3); MONOCYTES ABSOLUTE AUTO 0.56 K/uL (0.00-0.80); MONOCYTES PERCENT AUTO 7.4 % (0.0-8.0); NEUTROPHILS ABSOLUTE AUTO 4.77 K/uL (1.80-7.70); NEUTROPHILS PERCENT AUTO 63.4 % (41.0-71.0); PLATELET COUNT,PLT 226 K/uL (150-400); WHITE BLOOD CELL COUNT,WBC 7.53 K/uL (3.9-11.3)
[2023-02-27 22:06] LABS: INR 2.68 (0.86-1.11)
[2023-02-27 22:16] LABS: A/G RATIO 0.8 (0.9-1.6); ALBUMIN 3.1 g/dL (3.4-5.0); BILIRUBIN TOTAL 0.4 mg/dL (0.2-1.0); CARBON DIOXIDE,CO2 28.4 mmol/L (21.0-32.0); EST CRCL DRUG DOSING (CG) 43.91 mL/min; POTASSIUM,K 3.5 mmol/L (3.5-5.1); PROTEIN TOTAL,TP 6.9 g/dL (6.4-8.2)
[2023-02-27 22:27] LABS: APPEARANCE,URINE CLOUDY; BILIRUBIN,URINE NEGATIVE (NEGATIVE); COLOR,URINE YELLOW; GLUCOSE,URINE NEGATIVE (NEGATIVE); KETONES,URINE TRACE mg/dL (NEGATIVE); LEUKOCYTE ESTERASE,URINE SMALL (NEGATIVE); NITRITE,URINE NEGATIVE (NEGATIVE); OCCULT BLOOD,URINE LARGE (NEGATIVE); PH,URINE 5.5 (5.0-8.0); PROTEIN,URINE 30 mg/dL (NEGATIVE); UROBILINOGEN,URINE 0.2 EU/dL (<2.0)
[2023-02-27 22:34] LABS: BACTERIA,URINE 2+ (NEGATIVE); EPITHELIAL CELLS,URINE RARE (NONE-FEW); MUCUS,URINE NOT SEEN (NONE-MOD)
[2023-02-27] MEDS ORDERED: Naloxone 0.4 MG/ML SDV IVPUSH PRN (22:49)
[2023-02-27] MEDS ORDERED: Morphine 2 MG/ML SYRINGE IVPUSH ONE (22:53)
[2023-02-27] MEDS ORDERED: Morphine 4 MG/ML Syringe IVPUSH ONE (23:24)
[2023-02-27] MEDS ORDERED: Lidocaine 4% 1 each Patch TOP STA (23:24)
[2023-02-28] MEDS: Morphine 4 MG/ML Syringe IVPUSH PRN ×2 (02:28→04:38)
[2023-02-28] MEDS ORDERED: Lactated Ringers 1,000 ML IV SCH (03:00)
[2023-02-28 03:48] VITALS: BP 123/85; PULSE 86
== END 2023-02-28 04:59 ==
LOC: MW.ED 21:28
DX: S72.142A Displaced intertrochanteric fracture of left femur, initial encounter for closed fracture (principal); I48.91 Unspecified atrial fibrillation; Z79.01 Long term (current) use of anticoagulants; I10 Essential (primary) hypertension; E78.00 Pure hypercholesterolemia, unspecified; I25.810 Atherosclerosis of coronary artery bypass graft(s) without angina pectoris; I25.2 Old myocardial infarction; E11.9 Type 2 diabetes mellitus without complications; E66.9 Obesity, unspecified; Z86.16 Personal history of COVID-19; Z90.49 Acquired absence of other specified parts of digestive tract; Z79.82 Long term (current) use of aspirin; Z79.899 Other long term (current) drug therapy; Z88.8 Allergy status to other drugs, medicaments and biological substances; Z88.5 Allergy status to narcotic agent; Z68.37 Body mass index [BMI] 37.0-37.9, adult; W01.0XXA Fall on same level from slipping, tripping and stumbling without subsequent striking against object, initial encounter
CPT/HCPCS: 36415; 70450; 71045; 72125; 72131; 73502; 74176; 80053; 81001; 82550; 84484; 85025; 85610; 86850; 86900; 86901; 87086; 93005; 96374; 96375; 96376; 99285; A9270; G0390; J2270; J2405; J3010; J3490; J7120; 93010; 99291

== ENCOUNTER 2023-09-05 01:14 | Emergency (ER) | payer MEDICARE, BC ==
[2023-09-05] MEDS: Amoxicillin/Clavulanate K 875-125 MG Tab PO ONE (01:41)
[2023-09-05] MEDS: Diphtheria,Pertussis(Acell),Tetanus Vaccine 0.5 ML Syringe IM ONE (01:41)
[2023-09-05] MEDS: Bupivacaine 0.5% 10 ML SDV INJECT ONE (01:41)
[2023-09-05 04:30] VITALS: BP 135/77; PULSE 77
== END 2023-09-05 03:27 | disposition home or self-care (01) ==
LOC: MW.ED 01:14
DX: S81.852A Open bite, left lower leg, initial encounter (principal); I10 Essential (primary) hypertension; E78.00 Pure hypercholesterolemia, unspecified; I25.10 Atherosclerotic heart disease of native coronary artery without angina pectoris; E11.9 Type 2 diabetes mellitus without complications; E66.9 Obesity, unspecified; Z68.30 Body mass index [BMI] 30.0-30.9, adult; Z23 Encounter for immunization; Z86.16 Personal history of COVID-19; Z79.899 Other long term (current) drug therapy; Z79.82 Long term (current) use of aspirin; Z88.5 Allergy status to narcotic agent; Z88.8 Allergy status to other drugs, medicaments and biological substances; Z75.8 Other problems related to medical facilities and other health care; W55.01XA Bitten by cat, initial encounter
CPT/HCPCS: 12004; 51702; 90471; 90715; 99283; A9270; J0665